=== PATIENT | male | born 1955 | race Caucasian/White ===

== ENCOUNTER 2018-08-22 14:59 | Emergency (ER) | payer OTHER ==
[~2018-08-22] VITALS: Ht 170.2 cm; Wt 100.0 kg
[2018-08-22 15:30] VITALS: Ht 170.2 cm; Wt 100.0 kg
[2018-08-22] MEDS ORDERED: NEURONTIN600 MG PO (15:32)
[2018-08-22] MEDS ORDERED: METFORMIN HCL500 M1 PO (15:33)
[2018-08-22] MEDS ORDERED: TORADOL10 MG PO (18:43)
[2018-08-22 19:29] VITALS: BP 116/66
== END 2018-08-22 19:30 | disposition home or self-care (01) ==
LOC: D.ER 14:59
DX: N50.811 Right testicular pain (principal); S04.891 Injury of other cranial nerves, right side; W23.0XXA Caught, crushed, jammed, or pinched between moving objects, initial encounter; Y93.89 Activity, other specified; Y92.012 Bathroom of single-family (private) house as the place of occurrence of the external cause

== ENCOUNTER 2018-09-11 16:01 | Inpatient (IN) | payer OTHER ==
[~2018-09-11] VITALS: Ht 170.2 cm; Wt 89.8 kg
[~2018-09-11 16:01] MED LIST: METFORMIN HCL500 M1 PO; NEURONTIN600 MG PO; TORADOL10 MG PO
[2018-09-11 16:59] LABS: BASOPHILS 0.2 % (0-2); EOSINOPHILS 0.3 % (0-7); HEMOGLOBIN 14.6 g/dL (13.5-17.5); IMMATURE GRANULOCYTES 0.4 % (0-5); LYMPHOCYTES 19.5 % (15-50); MCH 32.4 pg (26.0-34.0); MCHC 34.8 g/dL (31.0-37.0); MCV 93.1 fL (80.0-100.0); MEAN PLATELET VOLUME 10.1 fL (7.4-10.4); MONOCYTES 4.8 % (2-11); NEUTROPHILS 74.8 % (40-80); PLATELET COUNT 276 10x3/uL (130-400); RBC 4.51 10x6/uL (4.20-6.10); RDW 13.3 % (11.5-14.5); WBC 16.7 10x3/uL (4.8-10.8)
[2018-09-11 17:14] LABS: ALKALINE PHOSPHATASE 67 U/L (46-116); ALT (SGPT) 21 U/L (10-68); BILIRUBIN - TOTAL 1.14 mg/dL (0.2-1.3); CALC OSMOLALITY 272 mosm/kg (275-300); CALCIUM 8.7 mg/dL (8.5-10.1); CHLORIDE - SERUM 101 mmol/L (98-107); CREATININE - SERUM 0.8 mg/dL (0.6-1.3); GLUCOSE 109 mg/dL (74-106); POTASSIUM - SERUM 3.8 mmol/L (3.5-5.1); PROTEIN - SERUM 8.2 g/dL (6.4-8.2); SODIUM 137 mmol/L (136-145); UREA NITROGEN 8 mg/dL (7-18); eGFR NON AFRICAN AMERICAN > 90 mL/min (90-120)
--- NOTE | 2018-09-11 18:57 | NUR ---
VA EXPEDITOR CONTACTED AND NOTIFED THAT THE PATEINT WAS BEING ADMITTED TO OUR FACILITY AND IS NOT MEDICALLY STABLE FOR TRANDFER. VIDA MARTINEZ RN, CCM
--- NOTE | 2018-09-11 19:35 | NUR ---
PT PROVIDED TURKEY SANDWICH FOR MEAL, PT INFORMED ME HE "TOOK HIS METFORMIN."
--- NOTE | 2018-09-11 20:00 | NUR ---
PT ARRIVED TO FLOOR VIA STRETCHER, AMBULATED TO BED WITH LITTLE DIFFICULTY. PAIN IN SCROTUM WITH MOVEMENT. SWELLING TO RIGHT TESTICLE. PT REMINDED OF NPO AFTER MIDNIGHT D/T SX WITH DR BAEZ. PT VERBALIZED UNDERSTANDING. 20G IV RIGHT HAND SL. STATES PAIN 4/10 AT THIS TIME. REQUESTED AND GIVEN COFFEE, JELLO, AND PUDDING. DENIES OTHER NEEDS. CL IN REACH, WILL CTM
[2018-09-11 23:53] VITALS: BMI 31.1
--- NOTE | 2018-09-12 | NUR ---
PT STATES PAIN 8/10 IN SCROTUM. SPOKE WITH DR BAEZ, ORDERS RECIEVED FOR MORPHINE 2MG Q2HP, ZOFRAN 4MG Q6HP, AND NS @ 75. NS INFUSING TO RIGHT HAND, NO REDNESS OR SWELLING AT INSERTION SITE. UPON REASSESSMENT, PT PAIN 0 AFTER MORPHINE. WILL CTM
[2018-09-12 01:18] VITALS: BP 96/56
[2018-09-12 05:22] VITALS: BP 95/60
[2018-09-12 08:43] VITALS: BP 105/66
[2018-09-12 12:04] VITALS: BP 104/70
--- NOTE | 2018-09-12 16:34 | NUR ---
PT RESTING IN BED. NO SIGNS DISTRESS. IV TO RIGHT HAND PATENT NO REDNESS OR TENDERNESS. RIGHT TESTICAL SWOLLEN. GOING TO SURGERY. DENIES ANY NEED AT THIS TIME.
[2018-09-12 18:20] VITALS: BP 130/79
--- NOTE | 2018-09-12 18:20 | NUR ---
I have reviewed this patient and I concur with the Shift Assessment completed by the Licensed Practical Nurse today this shift.
--- NOTE | 2018-09-12 19:45 | NUR ---
IN BED WITH TV ON, ALERT AND ORIENTED TIMES THREE. HE STATES HE FEELS SO MUCH BETTER NOW THAT HE HAS HAD THE PROCEDURE. ABLE TO VOICE ALL NEEDS. IV TO RIGHT ARM INFUSING PER ORDERS. WILL NOTE ANY CHANGE.
[2018-09-12 20:51] VITALS: BP 123/75
[2018-09-13 01:25] VITALS: BP 110/62
--- NOTE | 2018-09-13 02:48 | NUR ---
I have reviewed this patient and I concur with the Shift Assessment completed by the Licensed Practical Nurse today this shift.
[2018-09-13 04:48] VITALS: BP 107/58
[2018-09-13 08:45] VITALS: BP 114/71
--- NOTE | 2018-09-13 09:03 | OP ---
PATIENT NAME: ESTRELLA STEPHEN MEDICAL RECORD: [id number] :59 LOCATION:D[facility] [id number] ADMISSION DATE:09/11/18 SURGEON: RUPAL BAEZ MD DATE OF OPERATION: 09/11/2018 SURGEON: Rupal Baez MD ANESTHESIA: General anesthetic by Day Quinn CRNA. DIAGNOSES: Ruptured right testicle with necrosis, right scrotal abscess. PROCEDURES: Incision and drainage of right scrotal abscess and right orchiectomy. FINDINGS: Right hemiscrotal abscess. Necrotic right testicle with tunica albuginea rupture at the lower pole and seminiferous tubules extruding out of the opening. SPECIMENS: Right testicle and cord blood. ESTIMATED BLOOD LOSS: Minimal. CLINICAL HISTORY: This is a 63-year-old male who has a history of diabetes mellitus type 10 days ago as he was going to the bathroom in the dark he was feeling rather tired and groggy. He said he sat down on the toilet seat and ended up compressing the right testicle between the toilet seat and his thigh. He had immediate pain and he went to the Emergency Room and at that time, an ultrasound of the scrotum showed some blood flow to the right testicle. He went back home. He returned to the Emergency Room yesterday with increasingly severe right scrotal pain. An ultrasound of the scrotum done at that time showed absolutely no blood flow to the testicle. Upon reviewing the history, I discussed the situation with the patient. It seems that he may have ruptured his testicle when he compressed it. The testicle was not necrotic and he may well have a scrotal abscess. He was kept n.p.o. and now comes to the operating room to have this right hemiscrotum explored. He is not allergic to any medications. He was given Ancef 2 grams IV regional environmental manager to the OR. DESCRIPTION OF PROCEDURE: The patient was given induction of general anesthesia in the supine position. He was then prepped and draped. The scrotal skin on the right side shows a lot of thickening and induration. There is no necrosis to suggest Jason's gangrene. A midline incision was made in the scrotum about 3 cm in length. We then went down into the right hemiscrotum. Immediately, we encountered a large copious quantity of pus. Wound culture swabs were obtained. The suction was used to remove the excess pus and we could see the testicles in place. The tunica albuginea had ruptured in the lower pole and there was seminiferous tubules extruding out of the rupture. The testicle was also very inflamed and adherent to the tunica vaginalis. With blunt dissection, I managed to free the entire testicle. I also freed a portion of the cord that was attached to the testicle. Because the cord was highly inflamed and adhered to the scrotal wall, I decided to use a TX-30 stapler and using a vascular load, we cut through the cord with the stapler. A #15 blade was used to transect the cord. The testicular specimen was then sent to pathology. We irrigated the right hemiscrotum with saline with peroxide. Eventually, we used a 2-inch Kerlix infiltrated with normal saline as OPERATIVE REPORT [id number] ESTRELLA STEPHEN packing for the right hemiscrotum. Mesh panties were then used to hold the packing in place. I will arrange for him to have home care to have daily packing changes. TRANSINT:[id number] Voice Confirmation ID: [id number] DOCUMENT ID: [id number] RUPAL BAEZ MD at 0903 CC: [id number] DICTATION DATE: 09/12/181736 CHIEF MARKETING OFFICER: 09/12/185 ADM IN [facility] [address] [id number]
--- NOTE | 2018-09-13 10:22 | NUR ---
WENT INTO DO DAILY DRESSING CHANGE ORDERED TO CLOVER-AREA POST OP TESTICULAR REMOVAL. DURNING DRESSING CHANGE, DUE TO PAIN PATIENT STATES HE WAS READY TO LEAVE, THAT THIS WAS " BULLSHIT". I IMFORMED THE PATIENT THAT IS HE LEFT NOW HIS CHANCES OF HAVING TO RETURN DUE TO NON-HEALING OF WOUND. PATIENT THEN STATES THAT "THE HELL HE WOULD HAVE TO COME BACK, HE WOULD JUST GO HOME AND KILL HIMSELF, AND HE WASNT BULLSHITTING. SOUNDS LIKE A SHOT OF HEROIN WOULD FIX HIM RIGHT UP." AFTER FINISHING THE DRESSING CHANGE, I REMOVED ALL POTENTIAL HARMFUL MATERIAL FROM THE ROOM AND CALL SERVICE DELIVERY SUPERVISOR.
[2018-09-13 10:23] LABS: HEMATOCRIT 38.1 % (42.0-54.0); LYMPHOCYTES 26.6 % (15-50); MCH 31.9 pg (26.0-34.0); MCHC 34.1 g/dL (31.0-37.0); MCV 93.4 fL (80.0-100.0); MEAN PLATELET VOLUME 9.6 fL (7.4-10.4); NEUTROPHILS 66.3 % (40-80); PLATELET COUNT 259 10x3/uL (130-400); RBC 4.08 10x6/uL (4.20-6.10); RDW 12.5 % (11.5-14.5)
[2018-09-13 10:34] LABS: CALC OSMOLALITY 279 mosm/kg (275-300); CALCIUM 8.3 mg/dL (8.5-10.1); CARBON DIOXIDE 28.8 mmol/L (21.0-32.0); CHLORIDE - SERUM 107 mmol/L (98-107); CREATININE - SERUM 0.6 mg/dL (0.6-1.3); GLUCOSE 132 mg/dL (74-106); POTASSIUM - SERUM 3.5 mmol/L (3.5-5.1); SODIUM 141 mmol/L (136-145); eGFR NON AFRICAN AMERICAN > 90 mL/min (90-120)
[2018-09-13 10:39] LABS: UREA NITROGEN 5 mg/dL (7-18)
[2018-09-13 10:40] LABS: WBC 11.1 10x3/uL (4.8-10.8)
--- NOTE | 2018-09-13 11:12 | NUR ---
NURSE PRESENT IN PT'S ROOM UPON ARRIVAL FOR SUICIDE ASSESSMENT. DR. WEBER NOTIFIED AND REVIEWED PT'S BEHAVIOR AND ASSESSMENT RESULTS. PT IS A LOW RISK PER DR. WEBER. DR. WEBER STATED TO GIVE RESOURCES TO PT AT TIME OF DISCHARGE. NO FURTHER ORDERS AT THIS TIME. RESOURCES REVIEWED WITH PT AND HE VERBALIZED UNDERSTANDING. PT REPORTS " I AM A HIPPY. I LIKE TO JOKE AROUND AND HAVE FUN." "I HAVE NEVER ATTEMPTED TO KILL MYSELF AND I NEVER WILL."
--- NOTE | 2018-09-13 11:58 | MORECARE ---
CASE MANAGEMENT DISCHARGE SUMMARY PATIENT: ESTRELLA STEPHEN UNIT: [id number] ADM DATE: 09/11/18 AGE: 63 : 59 SEX: M ROOM/BED: D.2229 AUTHOR: EVELYN BAUER PHYSICIAN: REFERRING PHYSICIAN: RUPAL BAEZ MD DATE OF SERVICE: 09/13/18 Discharge Plan Patient Name: ESTRELLA STEPHEN [facility] [facility] 1955 Planned Disposition: Anticipated Discharge Date: Discharge Date: Expected LOS: Initial Reviewer: [email or web address] Initial Review Date: 09/13/2018 Generated: 09/13/18 12:58 pm DCPIA - Discharge Planning Initial Assessment Updated by [email or web address]: Maliha Dudley on 09/13/18 11:54 am * Is the patient Alert and Oriented? Yes * PCP VA IN [place]. NONE HERE * Preadmission Environment Home with Family * ADLs Independent * Equipment Cane * Community resources currently utilized None * Additional services required to return to the preadmission environment? Yes * Can the patient safely return to the preadmission environment? No * Has this patient been hospitalized within the prior 30 days at any hospital? No Patient Name: ESTRELLA STEPHEN Page [phone] at 1158 All edits/amendments must be made on the electronic document DICTATION DATE: 09/13/18 115 CHURN OPERATOR: CALEB 09/13/18 1158 RPT#: [id number] DC DATE: STATUS: ADM IN [facility] [address] [place] [address] END OF REPORT
--- NOTE | 2018-09-13 12:06 | MORECARE ---
CASE MANAGEMENT DISCHARGE SUMMARY PATIENT: ESTRELLA STEPHEN UNIT: [id number] ADM DATE: 09/11/18 AGE: 63 : 59 SEX: M ROOM/BED: D.2229 AUTHOR: LIZETTEDOC PHYSICIAN: REFERRING PHYSICIAN: RUPAL BAEZ MD DATE OF SERVICE: 09/13/18 Discharge Plan Patient Name: ESTRELLA STEPHEN Facility: [facility]:[place] : 1955 Planned Disposition: Anticipated Discharge Date: Discharge Date: Expected LOS: Initial Reviewer: [email or web address] Initial Review Date: 09/13/2018 Generated: 09/13/18 1:06 pm Comments DCP- Discharge Planning Updated by [id number]: Maliha Dudley on 09/13/18 10:[address] Patient Name: ESTRELLA STEPHEN Admission Status: ER Accout number: [id number] Admission Date: 09-11-2018 : 1955 Admission Diagnosis: Attending: LIZANDRO BAEZ Current LOS: 2 Anticipated DC Date: Planned Disposition: Primary Insurance: [employer] Discharge Planning Comments: CM MET WITH PATIENT ABOUT DC/PLANNING NEEDS. NEEDS WOUND CARE DAILY. PATIENT IS VA AND STATES HERE FROM [place], APPLIED FOR [facility] TODAY. STATES LIVING ARRANGEMENT IS HE HAS JUMPED AROUND TO DIFFERENT FRIENDS, NO PCP BUT IS VA IN [place]. SIGNED ANISA FOR ANY FACILITY. I WILL CONTACT VA TO CHECK ON HIS WOUND CARE DC NEEDS. CM TO FOLLOW AND ASSIST NEEDED. Cartography Supervisor: Maliha Dudley DCPIA - Discharge Planning Initial Assessment Updated by [id number]: Maliha Dudley on 09/13/18 11:54 am * Is the patient Alert and Oriented? Yes * PCP VA IN [place]. NONE HERE * Preadmission Environment Home with Family * ADLs Independent * Equipment Cane * Community resources currently utilized None * Additional services required to return to the preadmission environment? Yes * Can the patient safely return to the preadmission environment? No * Has this patient been hospitalized within the prior 30 days at any hospital? No Coverage Notice Reviewer: [id number] - Maliha Dudley Notice Issued Date-Time: 09/13/2018 11:59 Notice Type: Patient Choice Letter Notice Delivered To: Patient Relationship to Patient: Self Organ Teacher Name: Delivery Method: HAND - Hand Delivered Gracia Days: Prior Verbal Notification: Recipient Understood Notice: Yes Recipient Signature: Yes Med Rec Note Co-signed by Attending: Coverage Notice Comment: WANTS WOUND CARE WITH VA OR ANY THEY RECOMMEND. Last DP export: 09/13/18 10:58 am Patient Name: ESTRELLA STEPHEN Page [phone] at 1206 All edits/amendments must be made on the electronic document DICTATION DATE: 09/13/18 1206 WIREWORKER: CALEB 09/13/18 1206 RPT#: [id number] DC DATE: STATUS: ADM IN [facility] [address] [place] [address] END OF REPORT
[2018-09-13 12:30] VITALS: BP 108/65
--- NOTE | 2018-09-13 13:45 | NUR ---
LYING IN BED,WITHOUT DISTRESS.MONITOR
[2018-09-13 18:20] VITALS: BP 132/72
--- NOTE | 2018-09-13 19:40 | NUR ---
PT LYING IN BED WATCHING TV.CL IN REACH. DENIES NEEDS OR PAIN AT THIS TIME. A/O X4. WCTM RESP EVEN AND UNLABORED.
[2018-09-13 22:18] VITALS: BP 131/73
--- NOTE | 2018-09-14 00:07 | NUR ---
PT RESTING QUIETLY. CL IN REACH. NO DISTRESS NOTED. CPOC
--- NOTE | 2018-09-14 03:59 | NUR ---
I have reviewed this patient and I concur with the Shift Assessment completed by the Licensed Practical Nurse today this shift.
[2018-09-14 05:46] VITALS: BP 115/72
[2018-09-14 10:52] VITALS: BP 124/57
[2018-09-14 13:33] VITALS: BP 137/88
--- NOTE | 2018-09-14 15:46 | NUR ---
PATIENT RECIEVED MORPHINE FOR PRE DRESSING CHANGE.
--- NOTE | 2018-09-14 16:00 | NUR ---
PATIENT DRESSING TO SCROTUM CHANGED ORDERED. OLD PACKING REMOVED BY DR. BAEZ. STERILE NS SOAKED GAUZE PACKED INTO SCROTUM AND 4X4 AND ABD'S PLACED OVER WOUND. WOUND LOOKS CLEAN AND PINK. NO PURELENT DRAINAGE NOTED. IV INTACT. CALL LIGHT WITHIN REACH.
--- NOTE | 2018-09-14 16:13 | MORECARE ---
CASE MANAGEMENT DISCHARGE SUMMARY PATIENT: ESTRELLA STEPHEN UNIT: [id number] ADM DATE: 09/11/18 AGE: 63 : 59 SEX: M ROOM/BED: D.2229 AUTHOR: LIZETTEDOC PHYSICIAN: REFERRING PHYSICIAN: RUPAL BAEZ MD DATE OF SERVICE: 09/14/18 Discharge Plan Patient Name: ESTRELLA STEPHEN Facility: [facility]:[place] : 1955 Planned Disposition: Anticipated Discharge Date: Discharge Date: Expected LOS: Initial Reviewer: [email or web address] Initial Review Date: 09/13/2018 Generated: 09/14/18 5:12 pm Comments DCP- Discharge Planning Updated by [id number]: Maliha Dudley on 09/14/18 3:[address] Patient Name: ESTRELLA STEPHEN Admission Status: ER Accout number: [id number] Admission Date: 09-11-2018 : 1955 Admission Diagnosis: Attending: LIZANDRO BAEZ Current LOS: 3 Anticipated DC Date: Planned Disposition: Primary Insurance: [employer] Discharge Planning Comments: CM SPOKE WITH BRITNI AT THE [place] AFTER TALKING TO DR. BAEZ ABOUT DC PLANNING. [place] NOTIFIED THAT PATIENT WILL NEED HOME HEALTH OR SOME WAY TO GET WOUND PACKING DAILY. KAYLA RUBIO [place] POWERTRAIN DESIGN ENGINEER TO CONTACT CM TOMORROW ABOUT GETTING PATIENT DISCHARGED/PLACED. JOANNE PHONE NUMBER IS [phone]. CM TO FOLLOW. Requisition Approver: Maliha Dudley DCP- Discharge Planning Updated by [id number]: Maliha Dudley on 09/13/18 10:[address] Patient Name: ESTRELLA STEPHEN Admission Status: ER Accout number: [id number] Admission Date: 09-11-2018 : 1955 Admission Diagnosis: Attending: LIZANDRO BAEZ Current LOS: 2 Anticipated DC Date: Planned Disposition: Primary Insurance: [facility] ADMINISTRATION Discharge Planning Comments: CM MET WITH PATIENT ABOUT DC/PLANNING NEEDS. NEEDS WOUND CARE DAILY. PATIENT IS VA AND STATES HERE FROM [place], APPLIED FOR [facility] TODAY. STATES LIVING ARRANGEMENT IS HE HAS JUMPED AROUND TO DIFFERENT FRIENDS, NO PCP BUT IS VA IN [place]. SIGNED ANISA FOR ANY FACILITY. I WILL CONTACT AR TO CHECK ON HIS WOUND CARE DC NEEDS. CM TO FOLLOW AND ASSIST NEEDED. Requisition Approver: Maliha Octavia DCPIA - Discharge Planning Initial Assessment Updated by [email or web address]: Maliha Dudley on 09/13/18 11:54 am * Is the patient Alert and Oriented? Yes * PCP VA IN [place]. NONE HERE * Preadmission Environment Home with Family * ADLs Independent * Equipment Cane * Community resources currently utilized None * Additional services required to return to the preadmission environment? Yes * Can the patient safely return to the preadmission environment? No * Has this patient been hospitalized within the prior 30 days at any hospital? No Coverage Notice Reviewer: [id number] - Maliha Dudley Notice Issued Date-Time: 09/13/2018 11:59 Notice Type: Patient Choice Letter Notice Delivered To: Patient Relationship to Patient: Self Tax Senior Associate Name: Delivery Method: HAND - Hand Delivered Gracia Days: Prior Verbal Notification: Recipient Understood Notice: Yes Recipient Signature: Yes Med Rec Note Co-signed by Attending: Coverage Notice Comment: WANTS WOUND CARE WITH VA OR ANY THEY RECOMMEND. Last DP export: 09/13/18 11:06 am Patient Name: ESTRELLA STEPHEN Page [phone] at 1613 All edits/amendments must be made on the electronic document DICTATION DATE: 09/14/18 1612 ROOF PLUMBER: CALEB 09/14/18 161 RPT#: [id number] DC DATE: STATUS: ADM IN [facility] [address] [place] [address] END OF REPORT
--- NOTE | 2018-09-14 16:27 | NUR ---
PATIENT RECIEVED NORCO FOR PAIN. STILL HURTING FROM DRESSING CHANGE. IV INTACT. CALL LIGHT WITHIN REACH.
--- NOTE | 2018-09-14 19:15 | NUR ---
PT ALERT AND ORIENTED. SUPINE POSITION WITH PILLOW IN BETWEEN LEGS FOR COMFORT. ASSESSED RIGHT GROIN/PERINEAL AREA. DRESSING CLEAN AND DRY. RIGHT HAND SALINE LOCKED. USES URINAL. HAS CALL LIGHT IN HAND. BED IS LOCKED AND LOWERED. DENIES FURTHER NEEDS AT THIS TIME. CPOC.
[2018-09-14 20:00] VITALS: BP 128/85
--- NOTE | 2018-09-14 20:50 | NUR ---
PT REQUESTED PAIN MEDICINE. ADMINISTERED PER ORDER. TOLERATED WELL. CALL LIGHT REMAINS IN REACH OF PATIENT. CPOC./
[2018-09-15] VITALS: BP 130/76
--- NOTE | 2018-09-15 03:00 | NUR ---
I have reviewed this patient and I concur with the Shift Assessment completed by the Licensed Practical Nurse today this shift.
[2018-09-15 04:00] VITALS: BP 132/76
[2018-09-15 08:55] VITALS: BP 127/81
[2018-09-15 12:00] VITALS: BP 103/64
--- NOTE | 2018-09-15 12:27 | MORECARE ---
CASE MANAGEMENT DISCHARGE SUMMARY PATIENT: ESTRELLA STEPHEN UNIT: [id number] ADM DATE: 09/11/18 AGE: 63 : 59 SEX: M ROOM/BED: D.2229 AUTHOR: LIZETTEDOC PHYSICIAN: REFERRING PHYSICIAN: RUPAL BAEZ MD DATE OF SERVICE: 09/15/18 Discharge Plan Patient Name: ESTRELLA STEPHEN Facility: [facility]:[place] : 1955 Planned Disposition: Anticipated Discharge Date: Discharge Date: Expected LOS: Initial Reviewer: [id number] Initial Review Date: 09/13/2018 Generated: 09/15/18 1:27 pm Comments DCP- Discharge Planning Updated by [id number]: Maliha Dudley on 09/14/18 3:[address] Patient Name: ESTRELLA STEPHEN Admission Status: ER Accout number: [id number] Admission Date: 09-11-2018 : 1955 Admission Diagnosis: Attending: LIZANDRO BAEZ Current LOS: 3 Anticipated DC Date: Planned Disposition: Primary Insurance: [employer] Discharge Planning Comments: CM SPOKE WITH BRITNI AT THE [place] AFTER TALKING TO DR. BAEZ ABOUT DC PLANNING. [place] NOTIFIED THAT PATIENT WILL NEED HOME HEALTH OR SOME WAY TO GET WOUND PACKING DAILY. KAYLA RUBIO [place] FORECLOSURE FIELD INSPECTOR TO CONTACT CM TOMORROW ABOUT GETTING PATIENT DISCHARGED/PLACED. JOANNE PHONE NUMBER IS [phone]. CM TO FOLLOW. Power Plant Installer: Maliha Dudley DCP- Discharge Planning Updated by [id number]: Maliha Dudley on 09/13/18 10:[address] Patient Name: ESTRELLA STEPHEN Admission Status: ER Accout number: [id number] Admission Date: 09-11-2018 : 1955 Admission Diagnosis: Attending: LIZANDRO BAZE Current LOS: 2 Anticipated DC Date: Planned Disposition: Primary Insurance: [facility] ADMINISTRATION Discharge Planning Comments: CM MET WITH PATIENT ABOUT DC/PLANNING NEEDS. NEEDS WOUND CARE DAILY. PATIENT IS VA AND STATES HERE FROM [place], APPLIED FOR [facility] TODAY. STATES LIVING ARRANGEMENT IS HE HAS JUMPED AROUND TO DIFFERENT FRIENDS, NO PCP BUT IS VA IN [place]. SIGNED ANISA FOR ANY FACILITY. I WILL CONTACT [place] TO CHECK ON HIS WOUND CARE DC NEEDS. CM TO FOLLOW AND ASSIST NEEDED. Power Plant Installer: Maliha Octavia DCPIA - Discharge Planning Initial Assessment Updated by [id number]: Malihajeana Dudley on 09/13/18 11:54 am * Is the patient Alert and Oriented? Yes * PCP VA IN [place]. NONE HERE * Preadmission Environment Home with Family * ADLs Independent * Equipment Cane * Community resources currently utilized None * Additional services required to return to the preadmission environment? Yes * Can the patient safely return to the preadmission environment? No * Has this patient been hospitalized within the prior 30 days at any hospital? No External Providers External Provider: OTHER-OTHER Next Contact Date: Service Request Date: Service Type: Resolution: Reviewer: Comments: Coverage Notice Reviewer: [email or web address] - Malihajeana Dudley Notice Issued Date-Time: 09/13/2018 11:59 Notice Type: Patient Choice Letter Notice Delivered To: Patient Relationship to Patient: Self Road Conductor Name: Delivery Method: HAND - Hand Delivered Gracia Days: Prior Verbal Notification: Recipient Understood Notice: Yes Recipient Signature: Yes Med Rec Note Co-signed by Attending: Coverage Notice Comment: WANTS WOUND CARE WITH VA OR ANY THEY RECOMMEND. Last DP export: 09/14/18 3:13 pm Patient Name: ESTRELLA STEPHEN Page [phone] at 1227 All edits/amendments must be made on the electronic document DICTATION DATE: 09/15/187 PATIENT SERVICE COORDINATOR: CALEB 09/15/18 1227 RPT#: [id number] DC DATE: STATUS: ADM IN [facility] [address] [place] [address] END OF REPORT
[2018-09-15 13:48] VITALS: Ht 170.2 cm; Wt 89.8 kg
--- NOTE | 2018-09-15 16:45 | NUR ---
PATIENT DRESSING CHANGED AT THIS TIME. INCISION CLEAN AND PINL. NO PURELENT DRAINAGE. REPACKED WITH KERLIX AND NS. COVERED WITH GAUZE AND ABD PAD. PATIENT TOLERATED WITH MODERATE AMOUNT OF PAIN. IV INTACT. CALL LIGHT WITHIN REACH.
[2018-09-15 16:47] VITALS: BP 98/65
--- NOTE | 2018-09-15 17:32 | MORECARE ---
CASE MANAGEMENT DISCHARGE SUMMARY PATIENT: ESTRELLA STEPHEN UNIT: [id number] ADM DATE: 09/11/18 AGE: 63 : 59 SEX: M ROOM/BED: D.2229 AUTHOR: LIZETTEDOC PHYSICIAN: REFERRING PHYSICIAN: RUPAL BAEZ MD DATE OF SERVICE: 09/15/18 Discharge Plan Patient Name: ESTRELLA STEPHEN Facility: [facility]:[place] : 1955 Planned Disposition: Anticipated Discharge Date: Discharge Date: Expected LOS: Initial Reviewer: [id number] Initial Review Date: 09/13/2018 Generated: 09/15/18 6:32 pm Comments DCP- Discharge Planning Updated by [email or web address]: Maliha Dudley on 09/14/18 3:[address] Patient Name: ESTRELLA STEPHEN Admission Status: ER Accout number: [id number] Admission Date: 09-11-2018 : 1955 Admission Diagnosis: Attending: LIZANDRO BAEZ Current LOS: 3 Anticipated DC Date: Planned Disposition: Primary Insurance: [employer] Discharge Planning Comments: CM SPOKE WITH BRITNI AT THE [place] AFTER TALKING TO DR. BAEZ ABOUT DC PLANNING. [place] NOTIFIED THAT PATIENT WILL NEED HOME HEALTH OR SOME WAY TO GET WOUND PACKING DAILY. KAYLA RUBIO [place] PAYROLL CONSULTANT TO CONTACT CM TOMORROW ABOUT GETTING PATIENT DISCHARGED/PLACED. JOANNE PHONE NUMBER IS [phone]. CM TO FOLLOW. Skein Yard Drier: Maliha Dudley DCP- Discharge Planning Updated by [id number]: Maliha Dudley on 09/13/18 10:[address] Patient Name: ESTRELLA STEPHEN Admission Status: ER Accout number: [id number] Admission Date: 09-11-2018 : 1955 Admission Diagnosis: Attending: LIZANDRO BAEZ Current LOS: 2 Anticipated DC Date: Planned Disposition: Primary Insurance: [facility] Discharge Planning Comments: CM MET WITH PATIENT ABOUT DC/PLANNING NEEDS. NEEDS WOUND CARE DAILY. PATIENT IS VA AND STATES HERE FROM [place], APPLIED FOR [facility] TODAY. STATES LIVING ARRANGEMENT IS HE HAS JUMPED AROUND TO DIFFERENT FRIENDS, NO PCP BUT IS VA IN [place]. SIGNED ANISA FOR ANY FACILITY. I WILL CONTACT DE TO CHECK ON HIS WOUND CARE DC NEEDS. CM TO FOLLOW AND ASSIST NEEDED. Skein Yard Drier: Maliha Octavia DCPIA - Discharge Planning Initial Assessment Updated by [email or web address]: Maliha Dudley on 09/13/18 11:54 am * Is the patient Alert and Oriented? Yes * PCP VA IN [place]. NONE HERE * Preadmission Environment Home with Family * ADLs Independent * Equipment Cane * Community resources currently utilized None * Additional services required to return to the preadmission environment? Yes * Can the patient safely return to the preadmission environment? No * Has this patient been hospitalized within the prior 30 days at any hospital? No Coverage Notice Reviewer: [id number] - Maliha Dudley Notice Issued Date-Time: 09/13/2018 11:59 Notice Type: Patient Choice Letter Notice Delivered To: Patient Relationship to Patient: Self Carbonizer Tester Name: Delivery Method: HAND - Hand Delivered Gracia Days: Prior Verbal Notification: Recipient Understood Notice: Yes Recipient Signature: Yes Med Rec Note Co-signed by Attending: Coverage Notice Comment: WANTS WOUND CARE WITH VA OR ANY THEY RECOMMEND. Last DP export: 09/15/18 11:27 am Patient Name: ESTRELLA STEPHEN Page [phone] at 1732 All edits/amendments must be made on the electronic document DICTATION DATE: 09/15/181731 QUALITY INSPECTOR: CALEB 09/15/181731 RPT#: [id number] DC DATE: STATUS: ADM IN [facility] [address] [place] [address] END OF REPORT
--- NOTE | 2018-09-15 17:41 | MORECARE ---
CASE MANAGEMENT DISCHARGE SUMMARY PATIENT: ESTRELLA STEPHEN UNIT: [id number] ADM DATE: 09/11/18 AGE: 63 : 59 SEX: M ROOM/BED: D.2229 AUTHOR: LIZETTEDOC PHYSICIAN: REFERRING PHYSICIAN: RUPAL BAEZ MD DATE OF SERVICE: 09/15/18 Discharge Plan Patient Name: ESTRELLA STEPHEN Facility: [facility]:[place] : 1955 Planned Disposition: Anticipated Discharge Date: Discharge Date: Expected LOS: Initial Reviewer: [id number] Initial Review Date: 09/13/2018 Generated: 09/15/18 6:41 pm Comments DCP- Discharge Planning Updated by [id number]: Maliha Dudley on 09/15/18 4:[address] Patient Name: ESTRELLA STEPHEN Admission Status: ER Accout number: [id number] Admission Date: 09-11-2018 : 1955 Admission Diagnosis: Attending: LIZANDRO BAEZ Current LOS: 4 Anticipated DC Date: Planned Disposition: Primary Insurance: [employer] Discharge Planning Comments: VEGETABLES COOK MS RUBIO PHONE [phone] IS WORKING ON PLACEMENT. SHE STATES IT WILL BE TUESDAY BEFORE SHE COULD GET PLACEMENT ON HIM AND STATES DR SEWELL WILL OVER SEE PATIENT WHEN DISCHARGED. CM TO FOLLOW AND ASSIST NEEDED. EXPECTING A CALL FROM JOANNE TUESDAY. Cloth Washer: Maliha Dudley DCP- Discharge Planning Updated by [id number]: Maliha Dudley on 09/14/18 3:[address] Patient Name: ESTRELLA STEPHEN Admission Status: ER Accout number: [id number] Admission Date: 09-11-2018 : 1955 Admission Diagnosis: Attending: LIZANDRO BAEZ Current LOS: 3 Anticipated DC Date: Planned Disposition: Primary Insurance: [employer] Discharge Planning Comments: CM SPOKE WITH BRITNI AT THE [place] AFTER TALKING TO DR. BAEZ ABOUT DC PLANNING. [place] NOTIFIED THAT PATIENT WILL NEED HOME HEALTH OR SOME WAY TO GET WOUND PACKING DAILY. KAYLA RUBIO LA VEGETABLES COOK TO CONTACT CM TOMORROW ABOUT GETTING PATIENT DISCHARGED/PLACED. JOANNE PHONE NUMBER IS [phone]. CM TO FOLLOW. Cloth Washer: Maliha Dudley DCP- Discharge Planning Updated by [id number]: Maliha Dudley on 09/13/18 10:[address] Patient Name: ESTRELLA STEPHEN Admission Status: ER Accout number: [id number] Admission Date: 09-11-2018 : 1955 Admission Diagnosis: Attending: LIZANDRO BAEZ Current LOS: 2 Anticipated DC Date: Planned Disposition: Primary Insurance: [employer] Discharge Planning Comments: CM MET WITH PATIENT ABOUT DC/PLANNING NEEDS. NEEDS WOUND CARE DAILY. PATIENT IS [facility] AND STATES HERE FROM [place], APPLIED FOR [facility] TODAY. STATES LIVING ARRANGEMENT IS HE HAS JUMPED AROUND TO DIFFERENT FRIENDS, NO PCP BUT IS VA IN [place]. SIGNED ANISA FOR ANY FACILITY. I WILL CONTACT VA TO CHECK ON HIS WOUND CARE DC NEEDS. CM TO FOLLOW AND ASSIST NEEDED. Cloth Washer: Maliha Dudley DCPIA - Discharge Planning Initial Assessment Updated by [id number]: Maliha Dudley on 09/13/18 11:54 am * Is the patient Alert and Oriented? Yes * PCP VA IN [place]. NONE HERE * Preadmission Environment Home with Family * ADLs Independent * Equipment Cane * Community resources currently utilized None * Additional services required to return to the preadmission environment? Yes * Can the patient safely return to the preadmission environment? No * Has this patient been hospitalized within the prior 30 days at any hospital? No Coverage Notice Reviewer: [id number] - Maliha Dudley Notice Issued Date-Time: 09/13/2018 11:59 Notice Type: Patient Choice Letter Notice Delivered To: Patient Relationship to Patient: Self Help Desk Engineer Name: Delivery Method: HAND - Hand Delivered Gracia Days: Prior Verbal Notification: Recipient Understood Notice: Yes Recipient Signature: Yes Med Rec Note Co-signed by Attending: Coverage Notice Comment: WANTS WOUND CARE WITH VA OR ANY THEY RECOMMEND. Last DP export: 09/15/18 4:32 pm Patient Name: ESTRELLA STEPHEN Page 56495 at 1741 All edits/amendments must be made on the electronic document DICTATION DATE: 09/15/181739 HISTORIOGRAPHY PROFESSOR: CALEB 09/15/181739 RPT#: [id number] DC DATE: STATUS: ADM IN [facility] [address] [place] [address] END OF REPORT
[2018-09-15 20:00] VITALS: BP 102/64
[2018-09-16 04:00] VITALS: BP 102/63
[2018-09-16 08:37] VITALS: BP 102/61
--- NOTE | 2018-09-16 09:00 | NUR ---
ALERT AND ORIENTED WITH DRESSING INTACT TO SCROTAL AREA. IV INTACT TO RT. HAND. FISHER MANAGDE WITH NORCO AT THIS TIME AND EFFECTIVE. CHANGES POSITION PRN. ENCOURAGED TO USE CALL LIGHT FOR ASSSIT.
[2018-09-16 13:37] VITALS: BP 99/73
[2018-09-16 16:57] VITALS: BP 97/71
[2018-09-16 20:00] VITALS: BP 125/89
[2018-09-17] VITALS: BP 111/70
[2018-09-17 04:00] VITALS: BP 120/69
[2018-09-17 08:32] VITALS: BP 107/68
--- NOTE | 2018-09-17 09:00 | NUR ---
ALERT AND ORIENTEDX4 AND UP AMBULATING WITH STEADY GAIT. DRESSING INTACT TO SCROTUM WITH NO PAIN NOTED AT THIS TIME. IVF INFUSING TO RT HAND AT PRESCRIBED RATE WITH NO S/S OF INFECTION/INFILTRATION.
[2018-09-17 13:28] VITALS: BP 91/73
[2018-09-17 16:56] VITALS: BP 117/72
[2018-09-17 20:00] VITALS: BP 128/85
[2018-09-18 04:00] VITALS: BP 118/74
--- NOTE | 2018-09-18 07:30 | NUR ---
ALERT AND ORIENTED, RESTING IN BED. POD #6 RIGHT TESTICLE REMOVAL, DRESSING C/D/I. IV TO LEFT HAND, NS INFUSING @ 75ML/HR. SITE PATENT WITHOUT REDNESS OR SWELLING. NO C/O PAIN. NO S/S OF ACUTE DISTRESS NOTED. CALL LIGHT IN REACH. WILL CONTINUE TO MONITOR.
[2018-09-18 08:41] VITALS: BP 127/79
[2018-09-18 14:01] VITALS: BP 144/87
--- NOTE | 2018-09-18 15:27 | NUR ---
I have reviewed this patient and I concur with the Shift Assessment completed by the Licensed Practical Nurse today this shift.
--- NOTE | 2018-09-18 15:55 | MORECARE ---
CASE MANAGEMENT DISCHARGE SUMMARY PATIENT: ESTRELLA STEPHEN UNIT: [id number] ADM DATE: 09/11/18 AGE: 63 : 59 SEX: M ROOM/BED: D.2229 AUTHOR: EVELYN BAUER PHYSICIAN: REFERRING PHYSICIAN: RUPAL BAEZ MD DATE OF SERVICE: 09/18/18 Discharge Plan Patient Name: ESTRELLA STEPHEN Facility: [facility]:[place] : 1955 Planned Disposition: Anticipated Discharge Date: Discharge Date: Expected LOS: Initial Reviewer: [id number] Initial Review Date: 09/13/2018 Generated: 09/18/18 4:55 pm Comments DCP- Discharge Planning Updated by [id number]: Maliha Dudley on 09/18/18 2:[address] Patient Name: ESTRELLA STEPHEN Admission Status: ER Accout number: [id number] Admission Date: 09-11-2018 : 1955 Admission Diagnosis: Attending: LIZANDRO BAEZ Current LOS: 7 Anticipated DC Date: Planned Disposition: Primary Insurance: [employer] Discharge Planning Comments: KERRI CHRISTIE FROM [facility] CALLED FROM [phone] ABOUT PATIENT NEEDS. I INFORMED HER THAT MS RUBIO SAID SHE WOULD WORK ON PLACEMENT TODAY. PATIENT NEEDS A SNF. MS CHRISTIE IS CHECKING AND WILL CALL ME BACK. [place] Leverman: Maliha Dudley DCP- Discharge Planning Updated by [id number]: Maliha Dudley on 09/15/18 4:[address] Patient Name: ESTRELLA STEPHEN Admission Status: ER Accout number: [id number] Admission Date: 09-11-2018 : 1955 Admission Diagnosis: Attending: LIZANDRO BAEZ Current LOS: 4 Anticipated DC Date: Planned Disposition: Primary Insurance: [employer] Discharge Planning Comments: LAN SPECIALIST MS RUBIO PHONE [phone] IS WORKING ON PLACEMENT. SHE STATES IT WILL BE TUESDAY BEFORE SHE COULD GET PLACEMENT ON HIM AND STATES DR SEWELL WILL OVER SEE PATIENT WHEN DISCHARGED. CM TO FOLLOW AND ASSIST NEEDED. EXPECTING A CALL FROM JOANNE TUESDAY. [place] Leverman: Maliha Dudley DCP- Discharge Planning Updated by [id number]: Maliha Dudley on 09/14/18 3:[address] Patient Name: ESTRELLA STEPHEN Admission Status: ER Accout number: [id number] Admission Date: 09-11-2018 : 1955 Admission Diagnosis: Attending: LIZANDRO BAEZ Current LOS: 3 Anticipated DC Date: Planned Disposition: Primary Insurance: [facility] [employer] Discharge Planning Comments: CM SPOKE WITH BRITNI AT THE ID AFTER TALKING TO DR. BAEZ ABOUT DC PLANNING. ID NOTIFIED THAT PATIENT WILL NEED HOME HEALTH OR SOME WAY TO GET WOUND PACKING DAILY. KAYLA RUBIO ID LAN SPECIALIST TO CONTACT CM TOMORROW ABOUT GETTING PATIENT DISCHARGED/PLACED. JOANNE PHONE NUMBER IS [phone]. CM TO FOLLOW. [place] Leverman: Maliha Dudley DCP- Discharge Planning Updated by [id number]: Maliha Dudley on 09/13/18 10:[address] Patient Name: ESTRELLA STEPHEN Admission Status: ER Accout number: [id number] Admission Date: 09-11-2018 : 1955 Admission Diagnosis: Attending: LIZANDRO BAEZ Current LOS: 2 Anticipated DC Date: Planned Disposition: Primary Insurance: [facility] [employer] Discharge Planning Comments: CM MET WITH PATIENT ABOUT DC/PLANNING NEEDS. NEEDS WOUND CARE DAILY. PATIENT IS VA AND STATES HERE FROM [place], APPLIED FOR [facility] TODAY. STATES LIVING ARRANGEMENT IS HE HAS JUMPED AROUND TO DIFFERENT FRIENDS, NO PCP BUT IS [facility] IN [place]. SIGNED ANISA FOR ANY FACILITY. I WILL CONTACT ID TO CHECK ON HIS WOUND CARE DC NEEDS. CM TO FOLLOW AND ASSIST NEEDED. [place] Leverman: Maliha Dudley DCPIA - Discharge Planning Initial Assessment Updated by [id number]: Maliha Dudley on 09/13/18 11:54 am * Is the patient Alert and Oriented? Yes * PCP VA IN [place]. NONE HERE * Preadmission Environment Home with Family * ADLs Independent * Equipment Cane * Community resources currently utilized None * Additional services required to return to the preadmission environment? Yes * Can the patient safely return to the preadmission environment? No * Has this patient been hospitalized within the prior 30 days at any hospital? No Coverage Notice Reviewer: [id number] - Maliha Dudley Notice Issued Date-Time: 09/13/2018 11:59 Notice Type: Patient Choice Letter Notice Delivered To: Patient Relationship to Patient: Self Furnace Unloader Name: Delivery Method: HAND - Hand Delivered Gracia Days: Prior Verbal Notification: Recipient Understood Notice: Yes Recipient Signature: Yes Med Rec Note Co-signed by Attending: Coverage Notice Comment: WANTS WOUND CARE WITH VA OR ANY THEY RECOMMEND. Last DP export: 09/15/18 4:41 pm Patient Name: ESTRELLA STEPHEN Page 65082 at 1555 All edits/amendments must be made on the electronic document DICTATION DATE: 09/18/181554 OUTPATIENT PHARMACY MANAGER: CALEB 09/18/184 RPT#: [id number] DC DATE: STATUS: ADM IN [facility] [address] [place] [address] END OF REPORT
[2018-09-18 17:15] VITALS: BP 96/52
[2018-09-18 20:00] VITALS: BP 107/68
--- NOTE | 2018-09-18 20:00 | NUR ---
ALERT RESTING IN BED DENIES PAIN, DRESSING TO RIGHT TESTICLE INTACT, SEE SHIFT ASSESSMENT, CALL LIGHT IN REACH
[2018-09-19 04:00] VITALS: BP 118/72
[2018-09-19 08:59] VITALS: BP 119/72
--- NOTE | 2018-09-19 12:23 | MORECARE ---
CASE MANAGEMENT DISCHARGE SUMMARY PATIENT: ESTRELLA STEPHEN UNIT: [id number] ADM DATE: 09/11/18 AGE: 63 : 59 SEX: M ROOM/BED: D.2229 AUTHOR: EVELYN BAUER PHYSICIAN: REFERRING PHYSICIAN: RUPAL BAEZ MD DATE OF SERVICE: 09/19/18 Discharge Plan Patient Name: ESTRELLA STEPHEN Facility: [facility]:[place] : 1955 Planned Disposition: Anticipated Discharge Date: Discharge Date: Expected LOS: Initial Reviewer: [id number] Initial Review Date: 09/13/2018 Generated: 09/19/18 1:22 pm Comments DCP- Discharge Planning Updated by [id number]: Maliha Dudley on 09/19/18 11:[address] Patient Name: ESTRELLA STEPHEN Admission Status: ER Accout number: [id number] Admission Date: 09-11-2018 : 1955 Admission Diagnosis: Attending: LIZANDRO BAEZ Current LOS: 8 Anticipated DC Date: Planned Disposition: Primary Insurance: [employer] Discharge Planning Comments: CM SPOKE WITH THE ID MS RUBIO. THEY WOULD LIKE TO KNOW DURATION OF ANTIOBIOTICS AND WOUND CARE AND THE PLAN IS FOR THEM TO ACCEPT AND TRANSFER TO THE VA. MS. RUBIO IS WORKING ON IT, CM WILL CALL HER WITH DETAILS OF TREATMENT. CM TO FOLLOW. Public Health Service Officer: Maliha Dudley DCP- Discharge Planning Updated by [id number]: Maliha Dudley on 09/18/18 2:[address] Patient Name: ESTRELLA STEPHEN Admission Status: ER Accout number: [id number] Admission Date: 09-11-2018 : 1955 Admission Diagnosis: Attending: LIZANDRO BAEZ Current LOS: 7 Anticipated DC Date: Planned Disposition: Primary Insurance: [employer] Discharge Planning Comments: KERRI CHRISTIE FROM [facility] CALLED FROM [phone] ABOUT PATIENT NEEDS. I INFORMED HER THAT MS RUBIO SAID SHE WOULD WORK ON PLACEMENT TODAY. PATIENT NEEDS A SNF. MS CHRISTIE IS CHECKING AND WILL CALL ME BACK. Public Health Service Officer: Maliha Dudley DCP- Discharge Planning Updated by [id number]: Maliha Dudley on 09/15/18 4:[address] Patient Name: ESTRELLA STEPHEN Admission Status: ER Accout number: [id number] Admission Date: 09-11-2018 : 1955 Admission Diagnosis: Attending: LIZANDRO BAEZ Current LOS: 4 Anticipated DC Date: Planned Disposition: Primary Insurance: [employer] Discharge Planning Comments: WIRE WHEELER MS RUBIO PHONE [phone] IS WORKING ON PLACEMENT. SHE STATES IT WILL BE TUESDAY BEFORE SHE COULD GET PLACEMENT ON HIM AND STATES DR SEWELL WILL OVER SEE PATIENT WHEN DISCHARGED. CM TO FOLLOW AND ASSIST NEEDED. EXPECTING A CALL FROM JOANNE TUESDAY. Public Health Service Officer: Maliha Dudley DCP- Discharge Planning Updated by [id number]: Maliha Dudley on 09/14/18 3:[address] Patient Name: ESTRELLA STEPHEN Admission Status: ER Accout number: [id number] Admission Date: 09-11-2018 : 1955 Admission Diagnosis: Attending: LIZANDRO BAEZ Current LOS: 3 Anticipated DC Date: Planned Disposition: Primary Insurance: [employer] Discharge Planning Comments: CM SPOKE WITH BRITNI AT THE ID AFTER TALKING TO DR. BAEZ ABOUT DC PLANNING. ID NOTIFIED THAT PATIENT WILL NEED HOME HEALTH OR SOME WAY TO GET WOUND PACKING DAILY. KAYLA RUBIO ID WIRE WHEELER TO CONTACT CM TOMORROW ABOUT GETTING PATIENT DISCHARGED/PLACED. JOANNE PHONE NUMBER IS [phone]. CM TO FOLLOW. Public Health Service Officer: Maliha Dudley DCP- Discharge Planning Updated by [id number]: Maliha Dudley on 09/13/18 10:[address] Patient Name: ESTRELLA STEPHEN Admission Status: ER Accout number: [id number] Admission Date: 09-11-2018 : 1955 Admission Diagnosis: Attending: LIZANDRO BAEZ Current LOS: 2 Anticipated DC Date: Planned Disposition: Primary Insurance: [employer] Discharge Planning Comments: CM MET WITH PATIENT ABOUT DC/PLANNING NEEDS. NEEDS WOUND CARE DAILY. PATIENT IS VA AND STATES HERE FROM [place], APPLIED FOR [facility] TODAY. STATES LIVING ARRANGEMENT IS HE HAS JUMPED AROUND TO DIFFERENT FRIENDS, NO PCP BUT IS VA IN [place]. SIGNED ANISA FOR ANY FACILITY. I WILL CONTACT ID TO CHECK ON HIS WOUND CARE DC NEEDS. CM TO FOLLOW AND ASSIST NEEDED. Public Health Service Officer: Maliha Dudley DCPIA - Discharge Planning Initial Assessment Updated by [id number]: Maliha Dudley on 09/13/18 11:54 am * Is the patient Alert and Oriented? Yes * PCP VA IN [place]. NONE HERE * Preadmission Environment Home with Family * ADLs Independent * Equipment Cane * Community resources currently utilized None * Additional services required to return to the preadmission environment? Yes * Can the patient safely return to the preadmission environment? No * Has this patient been hospitalized within the prior 30 days at any hospital? No Coverage Notice Reviewer: [id number] Diego Dudley Notice Issued Date-Time: 09/13/2018 11:59 Notice Type: Patient Choice Letter Notice Delivered To: Patient Relationship to Patient: Self Contact Person Name: Delivery Method: HAND - Hand Delivered Gracia Days: Prior Verbal Notification: Recipient Understood Notice: Yes Recipient Signature: Yes Med Rec Note Co-signed by Attending: Coverage Notice Comment: WANTS WOUND CARE WITH VA OR ANY THEY RECOMMEND. Last DP export: 09/18/18 2:55 p Patient Name: ESTRELLA STEPHEN Page [phone] at 1223 All edits/amendments must be made on the electronic document DICTATION DATE: 09/19/18 1222 COOKIE BREAKER: CALEB 09/19/18 1222 RPT#: [id number] DC DATE: STATUS: ADM IN [facility] [address] [place] [address] END OF REPORT
[2018-09-19 13:11] VITALS: BP 117/76
--- NOTE | 2018-09-19 15:12 | NUR ---
PT RESTING IN BED. NO SIGNS OF DISTRESS. IV TO LEFT HAND PATENT NO REDNESS OR TENDERNESS. HAS INCISION TO RIGHT TESTICAL. DRESSING IS TO BE CHANGED. DENIES ANY FUTHER NEED AT THIS TIME. CALL LIGHT IN REACH. BED LOW POSITION. NO FAMILY AT BEDSIDE AT THIS TIME.
[2018-09-19 16:44] VITALS: BP 129/81
--- NOTE | 2018-09-19 18:45 | NUR ---
I have reviewed this patient and I concur with the Shift Assessment completed by the Licensed Practical Nurse today this shift.
[2018-09-19 20:00] VITALS: BP 122/87
--- NOTE | 2018-09-20 04:37 | NUR ---
PT RESTING IN BED. EYES CLOSED. NO SIGNS OF DISTRESS. BREATHING EVEN AND UNLABORED. IV SITE LT HAND DRESSING CLEAN DRY AND INTACT. NO SIGNS OF INFECTION. BOWEL SOUNDS ACTIVE. NO LOWER LEG SWELLING. WILL CONTINUE PLAN OF CARE. CALL LIGHT IN REACH. BED LOWERED AND LOCKED. BED RAILS UP X2.
--- NOTE | 2018-09-20 06:18 | NUR ---
RESTING,WITHOUT NEEDS.CALL LIGHT IN REACH
--- NOTE | 2018-09-20 07:41 | NUR ---
RECIEVED REPORT. PATIENT IS ALERT AND AWAKE. HE IS LAYING ON HIS RIGHT SIDE. HE DENIES ANY NEEDS AT THIS TIME.
--- NOTE | 2018-09-20 08:26 | NUR ---
PATIENT IS ALERT AND AWAKE. HE IS SITTING UP IN BED REQUESTING COFFEE. NORMAL SALINE INFUSING ORDERED. HE REPORTS THAT HE DOES NOT WANT THE NICOTINE PATCH, HE WANTS TO GO OUTSIDE TO SMOKE. HIS B/P IS 130/91 . WILL CONTINUE TO MONITOR CLOSELY.
[2018-09-20 09:11] VITALS: BP 130/91
--- NOTE | 2018-09-20 11:55 | MORECARE ---
CASE MANAGEMENT DISCHARGE SUMMARY PATIENT: ESTRELLA STEPHEN UNIT: [id number] ADM DATE: 09/11/18 AGE: 63 : 59 SEX: M ROOM/BED: D.2229 AUTHOR: EVELYN BAUER PHYSICIAN: REFERRING PHYSICIAN: RUPAL BAEZ MD DATE OF SERVICE: 09/20/18 Discharge Plan Patient Name: ESTRELLA STEPHEN Facility: [facility] : 1955 Planned Disposition: Anticipated Discharge Date: Discharge Date: Expected LOS: Initial Reviewer: [id number] Initial Review Date: 09/13/2018 Generated: 09/20/18 12:54 pm Comments DCP- Discharge Planning Updated by [id number]: Maliha Dudley on 09/20/18 10:[address] Patient Name: ESTRELLA STEPHEN Admission Status: ER Accout number: [id number] Admission Date: 09-11-2018 : 1955 Admission Diagnosis:OTHER INJURY OF UNSPECIFIED BODY REGION, INITIAL ENCOUN Attending: LIZANDRO BAEZ Current LOS: 9 Anticipated DC Date: Planned Disposition: Primary Insurance: [employer] Discharge Planning Comments: CM CALLED SUPERVISOR ELECTRONICS PROCESSING MS RUBIO AT PHONE [phone]. I LEFT A MS FOR HER TO CALL ME BACK. PATIENT IS NOW ON PO ANTIBIOTICS AND WOULD ONLY NEED WOUND CARE. PATIENT STAYS WITH FRIENDS, DOESN'T HAVE A PERMANENT ADDRESS. Electronic Gluer: Maliha Dudley DCP- Discharge Planning Updated by [id number]: Maliha Dudley on 09/19/18 11:[address] Patient Name: ESTRELLA STEPHEN Admission Status: ER Accout number: [id number] Admission Date: 09-11-2018 : 1955 Admission Diagnosis: Attending: LIZANDRO BAEZ Current LOS: 8 Anticipated DC Date: Planned Disposition: Primary Insurance: [employer] Discharge Planning Comments: CM SPOKE WITH THE [place] MS RUBIO. THEY WOULD LIKE TO KNOW DURATION OF ANTIOBIOTICS AND WOUND CARE AND THE PLAN IS FOR THEM TO ACCEPT AND TRANSFER TO THE VA. MS. RUBIO IS WORKING ON IT, CM WILL CALL HER WITH DETAILS OF TREATMENT. CM TO FOLLOW. Electronic Gluer: Maliha Dudley DCP- Discharge Planning Updated by [email or web address]: Maliha Dudley on 09/18/18 2:[address] Patient Name: ESTRELLA STEPHEN Admission Status: ER Accout number: [id number] Admission Date: 09-11-2018 : 1955 Admission Diagnosis: Attending: LIZANDRO BAEZ Current LOS: 7 Anticipated DC Date: Planned Disposition: Primary Insurance: [employer] Discharge Planning Comments: KERRI CHRISTIE FROM [facility] CALLED FROM [phone] ABOUT PATIENT NEEDS. I INFORMED HER THAT MS RUBIO SAID SHE WOULD WORK ON PLACEMENT TODAY. PATIENT NEEDS A SNF. MS CHRISTIE IS CHECKING AND WILL CALL ME BACK. Electronic Gluer: Mlaiha Dudley DCP- Discharge Planning Updated by [id number]: Maliha Dudley on 09/15/18 4:[address] Patient Name: ESTRELLA STEPHEN Admission Status: ER Accout number: [id number] Admission Date: 09-11-2018 : 1955 Admission Diagnosis: Attending: LIZANDRO BAEZ Current LOS: 4 Anticipated DC Date: Planned Disposition: Primary Insurance: [employer] Discharge Planning Comments: SUPERVISOR ELECTRONICS PROCESSING MS RUBIO PHONE [phone] IS WORKING ON PLACEMENT. SHE STATES IT WILL BE TUESDAY BEFORE SHE COULD GET PLACEMENT ON HIM AND STATES DR SEWELL WILL OVER SEE PATIENT WHEN DISCHARGED. CM TO FOLLOW AND ASSIST NEEDED. EXPECTING A CALL FROM JOANNE TUESDAY. Electronic Gluer: Maliha Dudley DCP- Discharge Planning Updated by [id number]: Maliha Dudley on 09/14/18 3:[address] Patient Name: ESTRELLA STEPHEN Admission Status: ER Accout number: [id number] Admission Date: 09-11-2018 : 1955 Admission Diagnosis: Attending: LIZANDRO BAEZ Current LOS: 3 Anticipated DC Date: Planned Disposition: Primary Insurance: [employer] Discharge Planning Comments: CM SPOKE WITH BRITNI AT THE [place] AFTER TALKING TO DR. BAEZ ABOUT DC PLANNING. [place] NOTIFIED THAT PATIENT WILL NEED HOME HEALTH OR SOME WAY TO GET WOUND PACKING DAILY. KAYLA RUBIO [place] SUPERVISOR ELECTRONICS PROCESSING TO CONTACT CM TOMORROW ABOUT GETTING PATIENT DISCHARGED/PLACED. JOANNE PHONE NUMBER IS [phone]. CM TO FOLLOW. Electronic Gluer: Maliha Dudley DCP- Discharge Planning Updated by [id number]: Mlaiha Dudley on 09/13/18 10:[address] Patient Name: ESTRELLA STEPHEN Admission Status: ER Accout number: [id number] Admission Date: 09-11-2018 : 1955 Admission Diagnosis: Attending: LIZANDRO BAEZ Current LOS: 2 Anticipated DC Date: Planned Disposition: Primary Insurance: [employer] Discharge Planning Comments: CM MET WITH PATIENT ABOUT DC/PLANNING NEEDS. NEEDS WOUND CARE DAILY. PATIENT IS VA AND STATES HERE FROM [place], APPLIED FOR [facility] TODAY. STATES LIVING ARRANGEMENT IS HE HAS JUMPED AROUND TO DIFFERENT FRIENDS, NO PCP BUT IS VA IN [place]. SIGNED ANISA FOR ANY FACILITY. I WILL CONTACT VA TO CHECK ON HIS WOUND CARE DC NEEDS. CM TO FOLLOW AND ASSIST NEEDED. Electronic Gluer: Maliha Dudley DCPIA - Discharge Planning Initial Assessment Updated by [id number]: Maliha Dudley on 09/13/18 11:54 am * Is the patient Alert and Oriented? Yes * PCP VA IN [place]. NONE HERE * Preadmission Environment Home with Family * ADLs Independent * Equipment Cane * Community resources currently utilized None * Additional services required to return to the preadmission environment? Yes * Can the patient safely return to the preadmission environment? No * Has this patient been hospitalized within the prior 30 days at any hospital? No Coverage Notice Reviewer: [id number] - Maliha Dudley Notice Issued Date-Time: 09/13/2018 11:59 Notice Type: Patient Choice Letter Notice Delivered To: Patient Relationship to Patient: Self Criminal Records Technician Name: Delivery Method: HAND - Hand Delivered Gracia Days: Prior Verbal Notification: Recipient Understood Notice: Yes Recipient Signature: Yes Med Rec Note Co-signed by Attending: Coverage Notice Comment: WANTS WOUND CARE WITH VA OR ANY THEY RECOMMEND. Last DP export: 09/19/18 11:23 a Patient Name: ESTRELLA STEPHEN Page 45114 at 1155 All edits/amendments must be made on the electronic document DICTATION DATE: 09/20/18 1154 ASSEMBLY LINE UPHOLSTERER: CALEB 09/20/18 1154 RPT#: [id number] DC DATE: STATUS: ADM IN [facility] [address] [place] [address] END OF REPORT
[2018-09-20 12:47] VITALS: BP 125/83
[2018-09-20 17:01] VITALS: BP 144/86
--- NOTE | 2018-09-20 17:29 | NUR ---
PATIENT IS SITTING UP IN BED. DRESSING CHANGE COMPLETED TO HIS RIGHT TESTICLE. GAVE HIM PAIN MEDICATIONS ORDERED BEFORE REMOVING THE PACKING AND REPACKING ORDERED. PATIENT TOLERATED. REDRESSED PATIENTS IV ON HIS LEFT HAND.
--- NOTE | 2018-09-20 19:59 | NUR ---
PATIENT UP WALKING IN ROOM RETRUNED TO BED JOSEFT AND KIRITED ABLE TO VOICE NEEDS AND WANTS TO STAFF. ON ROOM AIR, IV TO LEFT HAND WITH NS AT 75ML/HR, WET TO DRY DRESSING CDI TO RIGHT TESTICULAR AREA. CALL LIGHT AND WATER IN REACH, BED LOW, NO NEEDS NOTED OR STATED AT THIS TIME.
[2018-09-20 20:00] VITALS: BP 128/81
[2018-09-21 04:00] VITALS: BP 130/85
--- NOTE | 2018-09-21 07:30 | NUR ---
PT RESTING IN BED WITH EYES OPEN. NO S/S OF DISTRESS, BREATHING EVEN AND NONLABORED. IV LOCATED TO LEFT HAND RUNNING NS @ 75ML/HR. ALERT AND ORIENTED X4. EMPTIED 800ML OF CLEAR YELLOW URINE OUT OF URINAL. DENIES ANY FURTHER NEEDS AT THIS TIME. BED LOW, CALL LIGHT IN REACH, RAILS UP X 2. WILL CONTINUE TO MONITOR.
[2018-09-21 09:15] VITALS: BP 139/92
[2018-09-21 13:10] VITALS: BP 134/79
--- NOTE | 2018-09-21 13:15 | NUR ---
Nutrition follow-up: Diet: Regular PO intake 100% of all meals Labs reviewed Wt: 197# +BM Wound is healing RDN following.
[2018-09-21 18:10] VITALS: BP 131/88
--- NOTE | 2018-09-21 19:15 | NUR ---
PT ALERT AND ORIENTED. LAYING IN SUPINE POSITION. DRESSING TO THE RIGHT GROIN IS CLEAN DRY AND INTACT. PATIENT STATES "PAIN IS OKAY RIGHT NOW." IV TO THE LEFT HAND INFUSING NS @ 75. URINAL EMPTIED AND CHARTED. ROOM AIR. DENIES FURTHER ISSUES AT THIS TIME. CALL LIGHT IN REACH. EDUCATED ON PAIN MANAGEMENT. PATIENT VERBALIZES UNDERSTANDING. CPOC.
[2018-09-21 19:55] VITALS: BP 136/88
[2018-09-22] VITALS: BP 102/65
--- NOTE | 2018-09-22 02:55 | NUR ---
I have reviewed this patient and I concur with the Shift Assessment completed by the Licensed Practical Nurse today this shift.
[2018-09-22 04:00] VITALS: BP 137/83
--- NOTE | 2018-09-22 07:20 | NUR ---
ALERT AND ORIENTED. UP AD SUKUMAR. DRESSING TO SCROTUM, C/D/I. IV TO LEFT HAND, NS INFUSING @ 75ML/HR. SITE PATENT WITHOUT REDNESS OR SWELLING. NO C/O PAIN. NO S/S OF ACUTE DISTRESS NOTED. PT DENIES ANY NEEDS. CALL LIGHT IN REACH. WILL CONTINUE TO MONITOR.
[2018-09-22 08:30] VITALS: BP 138/87
--- NOTE | 2018-09-22 12:37 | MORECARE ---
CASE MANAGEMENT DISCHARGE SUMMARY PATIENT: ESTRELLA STEPHEN UNIT: [id number] ADM DATE: 09/11/18 AGE: 63 : 59 SEX: M ROOM/BED: D.2229 AUTHOR: EVELYN BAUER PHYSICIAN: REFERRING PHYSICIAN: RUPAL BAEZ MD DATE OF SERVICE: 09/22/18 Discharge Plan Patient Name: ESTRELLA STEPHEN Facility: [facility]:[place] : 1955 Planned Disposition: Anticipated Discharge Date: Discharge Date: Expected LOS: Initial Reviewer: [id number] Initial Review Date: 09/13/2018 Generated: 09/22/18 1:37 pm Comments DCP- Discharge Planning Updated by [id number]: Maliha Dudley on 09/20/18 10:[address] Patient Name: ESTRELLA STEPHEN Admission Status: ER Accout number: [id number] Admission Date: 09-11-2018 : 1955 Admission Diagnosis:OTHER INJURY OF UNSPECIFIED BODY REGION, INITIAL ENCOUN Attending: LIZANDRO BAEZ Current LOS: 9 Anticipated DC Date: Planned Disposition: Primary Insurance: [employer] Discharge Planning Comments: CM CALLED MANAGER OF EMPLOYEE RELATIONS MS RUBIO AT PHONE [phone]. I LEFT A MS FOR HER TO CALL ME BACK. PATIENT IS NOW ON PO ANTIBIOTICS AND WOULD ONLY NEED WOUND CARE. PATIENT STAYS WITH FRIENDS, DOESN'T HAVE A PERMANENT ADDRESS. Hanging Flags Decorator: Maliha Dudley DCP- Discharge Planning Updated by [id number]: Maliha Dudley on 09/19/18 11:[address] Patient Name: ESTRELLA STEPHEN Admission Status: ER Accout number: [id number] Admission Date: 09-11-2018 : 1955 Admission Diagnosis: Attending: LIZANDRO BAEZ Current LOS: 8 Anticipated DC Date: Planned Disposition: Primary Insurance: [employer] Discharge Planning Comments: CM SPOKE WITH THE AL MS RUBIO. THEY WOULD LIKE TO KNOW DURATION OF ANTIOBIOTICS AND WOUND CARE AND THE PLAN IS FOR THEM TO ACCEPT AND TRANSFER TO THE [facility]. MS. RUBIO IS WORKING ON IT, CM WILL CALL HER WITH DETAILS OF TREATMENT. CM TO FOLLOW. Hanging Flags Decorator: Maliha Dudley DCP- Discharge Planning Updated by [email or web address]: Maliha Dudley on 09/18/18 2:[address] Patient Name: ESTRELLA STEPHEN Admission Status: ER Accout number: [id number] Admission Date: 09-11-2018 : 1955 Admission Diagnosis: Attending: LIZANDRO BAEZ Current LOS: 7 Anticipated DC Date: Planned Disposition: Primary Insurance: [employer] Discharge Planning Comments: KERRI CHRISTIE FROM [facility] CALLED FROM [phone] ABOUT PATIENT NEEDS. I INFORMED HER THAT MS RUBIO SAID SHE WOULD WORK ON PLACEMENT TODAY. PATIENT NEEDS A SNF. MS CHRISTIE IS CHECKING AND WILL CALL ME BACK. Hanging Flags Decorator: Maliha Dudley DCP- Discharge Planning Updated by [id number]: Maliha Dudley on 09/15/18 4:[address] Patient Name: ESTRELLA STEPHEN Admission Status: ER Accout number: [id number] Admission Date: 09-11-2018 : 1955 Admission Diagnosis: Attending: LIZANDRO BAEZ Current LOS: 4 Anticipated DC Date: Planned Disposition: Primary Insurance: [employer] Discharge Planning Comments: MANAGER OF EMPLOYEE RELATIONS MS RUBIO PHONE [phone] IS WORKING ON PLACEMENT. SHE STATES IT WILL BE TUESDAY BEFORE SHE COULD GET PLACEMENT ON HIM AND STATES DR SEWELL WILL OVER SEE PATIENT WHEN DISCHARGED. CM TO FOLLOW AND ASSIST NEEDED. EXPECTING A CALL FROM JOANNE TUESDAY. Hanging Flags Decorator: Maliha Dudley DCP- Discharge Planning Updated by [id number]: Maliha Dudley on 09/14/18 3:[address] Patient Name: ESTRELLA STEPHEN Admission Status: ER Accout number: [id number] Admission Date: 09-11-2018 : 1955 Admission Diagnosis: Attending: LIZANDRO BAEZ Current LOS: 3 Anticipated DC Date: Planned Disposition: Primary Insurance: [employer] Discharge Planning Comments: CM SPOKE WITH BRITNI AT THE AL AFTER TALKING TO DR. BAEZ ABOUT DC PLANNING. AL NOTIFIED THAT PATIENT WILL NEED HOME HEALTH OR SOME WAY TO GET WOUND PACKING DAILY. KAYLA RUBIO AL MANAGER OF EMPLOYEE RELATIONS TO CONTACT CM TOMORROW ABOUT GETTING PATIENT DISCHARGED/PLACED. JOANNE PHONE NUMBER IS [phone]. CM TO FOLLOW. Hanging Flags Decorator: Maliha Dudley DCP- Discharge Planning Updated by [id number]: Maliha Dudley on 09/13/18 10:[address] Patient Name: ESTRELLA STEPHEN Admission Status: ER Accout number: [id number] Admission Date: 09-11-2018 : 1955 Admission Diagnosis: Attending: LIZANDRO BAEZ Current LOS: 2 Anticipated DC Date: Planned Disposition: Primary Insurance: [employer] Discharge Planning Comments: CM MET WITH PATIENT ABOUT DC/PLANNING NEEDS. NEEDS WOUND CARE DAILY. PATIENT IS [facility] AND STATES HERE FROM [place], APPLIED FOR [facility] TODAY. STATES LIVING ARRANGEMENT IS HE HAS JUMPED AROUND TO DIFFERENT FRIENDS, NO PCP BUT IS VA IN [place]. SIGNED ANISA FOR ANY FACILITY. I WILL CONTACT VA TO CHECK ON HIS WOUND CARE DC NEEDS. CM TO FOLLOW AND ASSIST NEEDED. Hanging Flags Decorator: Malihajeana Dudley DCPIA - Discharge Planning Initial Assessment Updated by [id number]: Maliha Dudley on 09/13/18 11:54 am * Is the patient Alert and Oriented? Yes * PCP VA IN [place]. NONE HERE * Preadmission Environment Home with Family * ADLs Independent * Equipment Cane * Community resources currently utilized None * Additional services required to return to the preadmission environment? Yes * Can the patient safely return to the preadmission environment? No * Has this patient been hospitalized within the prior 30 days at any hospital? No External Providers External Provider: OTHER-OTHER Next Contact Date: Service Request Date: Service Type: Resolution: Reviewer: Comments: Coverage Notice Reviewer: [id number] - Malihajeana Dudley Notice Issued Date-Time: 09/13/2018 11:59 Notice Type: Patient Choice Letter Notice Delivered To: Patient Relationship to Patient: Self Industrial Electrician Journeyman Name: Delivery Method: HAND - Hand Delivered Gracia Days: Prior Verbal Notification: Recipient Understood Notice: Yes Recipient Signature: Yes Med Rec Note Co-signed by Attending: Coverage Notice Comment: WANTS WOUND CARE WITH VA OR ANY THEY RECOMMEND. Last DP export: 09/20/18 10:55 a Patient Name: ESTRELLA STEPHEN Page [id number] at 1237 All edits/amendments must be made on the electronic document DICTATION DATE: 09/22/18 1236 LOCAL TANKER TRUCK DRIVER: CALEB 09/22/18 1236 RPT#: [id number] DC DATE: STATUS: ADM IN [facility] [address] [place] [address] END OF REPORT
[2018-09-22 12:47] VITALS: BP 135/84
--- NOTE | 2018-09-22 12:51 | MORECARE ---
CASE MANAGEMENT DISCHARGE SUMMARY PATIENT: ESTRELLA STEPHEN UNIT: [id number] ADM DATE: 09/11/18 AGE: 63 : 59 SEX: M ROOM/BED: D.2229 AUTHOR: LIZETTE,DOC PHYSICIAN: REFERRING PHYSICIAN: RUPAL BAEZ MD DATE OF SERVICE: 09/22/18 Discharge Plan Patient Name: ESTRELLA STEPHEN Facility: [facility]:[place] : 1955 Planned Disposition: Anticipated Discharge Date: Discharge Date: Expected LOS: Initial Reviewer: [id number] Initial Review Date: 09/13/2018 Generated: 09/22/18 1:51 pm Comments DCP- Discharge Planning Updated by [id number]: Maliha Dudley on 09/22/18 11:[address] Patient Name: ESTRELLA STEPHEN Admission Status: ER Accout number: [id number] Admission Date: 09-11-2018 : 1955 Admission Diagnosis:OTHER INJURY OF UNSPECIFIED BODY REGION, INITIAL ENCOUN Attending: LIZANDRO BAEZ Current LOS: 11 Anticipated DC Date: Planned Disposition: Primary Insurance: [employer] Discharge Planning Comments: CM FAXED CLINICALS TO MS MANNING AT THE [place], THEY ARE WORKING ON TRYING TO GET HIM ACCEPTED TO THEIR [facility]. CM TO FOLLOW AND ASSIST. Information Coder: Maliha Dudley DCP- Discharge Planning Updated by [id number]: Maliha Dudley on 09/20/18 10:[address] Patient Name: ESTRELLA STEPHEN Admission Status: ER Accout number: [id number] Admission Date: 09-11-2018 : 1955 Admission Diagnosis:OTHER INJURY OF UNSPECIFIED BODY REGION, INITIAL ENCOUN Attending: LIZANDRO BAEZ Current LOS: 9 Anticipated DC Date: Planned Disposition: Primary Insurance: [employer] Discharge Planning Comments: CM CALLED PUBLIC SERVICE OFFICER MS RUBIO AT PHONE [phone]. I LEFT A MSG FOR HER TO CALL ME BACK. PATIENT IS NOW ON PO ANTIBIOTICS AND WOULD ONLY NEED WOUND CARE. PATIENT STAYS WITH FRIENDS, DOESN'T HAVE A PERMANENT ADDRESS. Information Coder: Maliha Dudley DCP- Discharge Planning Updated by [email or web address]: Maliha Dudley on 09/19/18 11:[address] Patient Name: ESTRELLA STEPHEN Admission Status: ER Accout number: [id number] Admission Date: 09-11-2018 : 1955 Admission Diagnosis: Attending: LIZANDRO BAEZ Current LOS: 8 Anticipated DC Date: Planned Disposition: Primary Insurance: [employer] Discharge Planning Comments: CM SPOKE WITH THE [place] MS RUBIO. THEY WOULD LIKE TO KNOW DURATION OF ANTIOBIOTICS AND WOUND CARE AND THE PLAN IS FOR THEM TO ACCEPT AND TRANSFER TO THE VA. MS. RUBIO IS WORKING ON IT, CM WILL CALL HER WITH DETAILS OF TREATMENT. CM TO FOLLOW. Information Coder: Maliha Dudley DCP- Discharge Planning Updated by [id number]: Maliha Dudley on 09/18/18 2:[address] Patient Name: ESTRELLA STEPHEN Admission Status: ER Accout number: [id number] Admission Date: 09-11-2018 : 1955 Admission Diagnosis: Attending: ILZANDRO BAEZ Current LOS: 7 Anticipated DC Date: Planned Disposition: Primary Insurance: [employer] Discharge Planning Comments: KERRI CHRISTIE FROM [facility] CALLED FROM [phone] ABOUT PATIENT NEEDS. I INFORMED HER THAT MS RUBIO SAID SHE WOULD WORK ON PLACEMENT TODAY. PATIENT NEEDS A SNF. MS CHRISTIE IS CHECKING AND WILL CALL ME BACK. Information Coder: Maliha Dudley NCP- Discharge Planning Updated by [id number]: Maliha Dudley on 09/15/18 4:[address] Patient Name: ESTRELLA STEPHEN Admission Status: ER Accout number: [id number] Admission Date: 09-11-2018 : 1955 Admission Diagnosis: Attending: LIZANDRO BAEZ Current LOS: 4 Anticipated DC Date: Planned Disposition: Primary Insurance: [employer] Discharge Planning Comments: PUBLIC SERVICE OFFICER MS RUBIO PHONE [phone] IS WORKING ON PLACEMENT. SHE STATES IT WILL BE TUESDAY BEFORE SHE COULD GET PLACEMENT ON HIM AND STATES DR SEWELL WILL OVER SEE PATIENT WHEN DISCHARGED. CM TO FOLLOW AND ASSIST NEEDED. EXPECTING A CALL FROM JOANNE TUESDAY. Information Coder: Maliha Dudley NCP- Discharge Planning Updated by [id number]: Maliha Dudley on 09/14/18 3:[address] Patient Name: ESTRELLA STEPHEN Admission Status: ER Accout number: [id number] Admission Date: 09-11-2018 : 1955 Admission Diagnosis: Attending: LIZANDRO BAEZ Current LOS: 3 Anticipated DC Date: Planned Disposition: Primary Insurance: [facility] Discharge Planning Comments: CM SPOKE WITH BRITNI AT THE [place] AFTER TALKING TO DR. BAEZ ABOUT DC PLANNING. [place] NOTIFIED THAT PATIENT WILL NEED HOME HEALTH OR SOME WAY TO GET WOUND PACKING DAILY. KAYLA RUBIO [place] PUBLIC SERVICE OFFICER TO CONTACT CM TOMORROW ABOUT GETTING PATIENT DISCHARGED/PLACED. JOANNE PHONE NUMBER IS [phone]. CM TO FOLLOW. Information Coder: Maliha Dudley DCP- Discharge Planning Updated by [id number]: Maliha Dudley on 09/13/18 10:[address] Patient Name: ESTRELLA STEPHEN Admission Status: ER Accout number: [id number] Admission Date: 09-11-2018 : 1955 Admission Diagnosis: Attending: LIZANDRO BAEZ Current LOS: 2 Anticipated DC Date: Planned Disposition: Primary Insurance: [facility] Discharge Planning Comments: CM MET WITH PATIENT ABOUT DC/PLANNING NEEDS. NEEDS WOUND CARE DAILY. PATIENT IS VA AND STATES HERE FROM [place], APPLIED FOR [facility] TODAY. STATES LIVING ARRANGEMENT IS HE HAS JUMPED AROUND TO DIFFERENT FRIENDS, NO PCP BUT IS VA IN [place]. SIGNED ANISA FOR ANY FACILITY. I WILL CONTACT [place] TO CHECK ON HIS WOUND CARE DC NEEDS. CM TO FOLLOW AND ASSIST NEEDED. Information Coder: Maliha Dudley DCPIA - Discharge Planning Initial Assessment Updated by [id number]: Maliha Dudley on 09/13/18 11:54 am * Is the patient Alert and Oriented? Yes * PCP VA IN [place]. NONE HERE * Preadmission Environment Home with Family * ADLs Independent * Equipment Cane * Community resources currently utilized None * Additional services required to return to the preadmission environment? Yes * Can the patient safely return to the preadmission environment? No * Has this patient been hospitalized within the prior 30 days at any hospital? No Coverage Notice Reviewer: [id number] - Maliha Dudley Notice Issued Date-Time: 09/13/2018 11:59 Notice Type: Patient Choice Letter Notice Delivered To: Patient Relationship to Patient: Self Resistor Tester Name: Delivery Method: HAND - Hand Delivered Gracia Days: Prior Verbal Notification: Recipient Understood Notice: Yes Recipient Signature: Yes Med Rec Note Co-signed by Attending: Coverage Notice Comment: WANTS WOUND CARE WITH VA OR ANY THEY RECOMMEND. Last DP export: 09/22/18 11:37 a Patient Name: ESTRELLA STEPHEN Page [phone] at 1251 All edits/amendments must be made on the electronic document DICTATION DATE: 09/22/18 125 AUDIO/VISUAL MANAGER: CALEB 09/22/18 1251 RPT#: [id number] DC DATE: STATUS: ADM IN [facility] [address] [place] [address] END OF REPORT
[2018-09-22 16:51] VITALS: BP 131/74
--- NOTE | 2018-09-22 18:51 | MORECARE ---
CASE MANAGEMENT DISCHARGE SUMMARY PATIENT: ESTRELLA STEPHEN UNIT: [id number] ADM DATE: 09/11/18 AGE: 63 : 59 SEX: M ROOM/BED: D.2229 AUTHOR: LIZETTEDOC PHYSICIAN: REFERRING PHYSICIAN: RUPAL BAEZ MD DATE OF SERVICE: 09/22/18 Discharge Plan Patient Name: ESTRELLA STEPHEN Facility: [facility]:[place] : 1955 Planned Disposition: Anticipated Discharge Date: Discharge Date: Expected LOS: Initial Reviewer: [id number] Initial Review Date: 09/13/2018 Generated: 09/22/18 7:51 pm Comments DCP- Discharge Planning Updated by [email or web address]: Maliha Dudley on 09/22/18 5:[address] Patient Name: ESTRELLA STEPHEN Admission Status: ER Accout number: [id number] Admission Date: 09-11-2018 : 1955 Admission Diagnosis:OTHER INJURY OF UNSPECIFIED BODY REGION, INITIAL ENCOUN Attending: LIZANDRO BAEZ Current LOS: 11 Anticipated DC Date: Planned Disposition: Primary Insurance: [employer] Discharge Planning Comments: CM FAXED CLINICALS TO MS MANNING AT THE [place], THEY ARE WORKING ON TRYING TO GET HIM ACCEPTED TO THEIR [facility]. CM TO FOLLOW AND ASSIST. Shift Superintendent Caustic Cresylate: Maliha Dudley Appended by Maliha Dudley on 09/22/2018 18:49 CDT: CM FAXED VA CHECKLIST TO [facility] AT [phone]. INFORMATION SAVED IN IMAGES. DCP- Discharge Planning Updated by [id number]: Maliha Dudley on 09/20/18 10:[address] Patient Name: ESTRELLA STEPHEN Admission Status: ER Accout number: [id number] Admission Date: 09-11-2018 : 1955 Admission Diagnosis:OTHER INJURY OF UNSPECIFIED BODY REGION, INITIAL ENCOUN Attending: LIZANDRO BAEZ Current LOS: 9 Anticipated DC Date: Planned Disposition: Primary Insurance: [employer] Discharge Planning Comments: CM CALLED DEWATERER OPERATOR JOANNE AT PHONE [phone]. I LEFT A MS FOR HER TO CALL ME BACK. PATIENT IS NOW ON PO ANTIBIOTICS AND WOULD ONLY NEED WOUND CARE. PATIENT STAYS WITH FRIENDS, DOESN'T HAVE A PERMANENT ADDRESS. Shift Superintendent Caustic Cresylate: Maliha Dudley DCP- Discharge Planning Updated by [id number]: Maliha Dudley on 09/19/18 11:[address] Patient Name: ESTRELLA STEPHEN Admission Status: ER Accout number: [id number] Admission Date: 09-11-2018 : 1955 Admission Diagnosis: Attending: LIZANDRO BAEZ Current LOS: 8 Anticipated DC Date: Planned Disposition: Primary Insurance: [employer] Discharge Planning Comments: CM SPOKE WITH THE [place] MS RUBIO. THEY WOULD LIKE TO KNOW DURATION OF ANTIOBIOTICS AND WOUND CARE AND THE PLAN IS FOR THEM TO ACCEPT AND TRANSFER TO THE VA. MS. RUBIO IS WORKING ON IT, CM WILL CALL HER WITH DETAILS OF TREATMENT. CM TO FOLLOW. Shift Superintendent Caustic Cresylate: Maliha Dudley [facility]- Discharge Planning Updated by [id number]: Maliah Dudley on 09/18/18 2:[address] Patient Name: ESTRELLA STEPHEN Admission Status: ER Accout number: [id number] Admission Date: 09-11-2018 : 1955 Admission Diagnosis: Attending: LIZANDRO BAEZ Current LOS: 7 Anticipated DC Date: Planned Disposition: Primary Insurance: [employer] Discharge Planning Comments: KERRI CHRISTIE FROM [facility] CALLED FROM [phone] ABOUT PATIENT NEEDS. I INFORMED HER THAT MS RUBIO SAID SHE WOULD WORK ON PLACEMENT TODAY. PATIENT NEEDS A SNF. MS CHRISTIE IS CHECKING AND WILL CALL ME BACK. Shift Superintendent Caustic Cresylate: Maliha Dudley [facility]- Discharge Planning Updated by [id number]: Maliha Dudley on 09/15/18 4:[address] Patient Name: ESTRELLA STEPHEN Admission Status: ER Accout number: [id number] Admission Date: 09-11-2018 : 1955 Admission Diagnosis: Attending: LIZANDRO BAEZ Current LOS: 4 Anticipated DC Date: Planned Disposition: Primary Insurance: [employer] Discharge Planning Comments: DEWATERER OPERATOR MS RUBIO PHONE [phone] IS WORKING ON PLACEMENT. SHE STATES IT WILL BE TUESDAY BEFORE SHE COULD GET PLACEMENT ON HIM AND STATES DR SEWELL WILL OVER SEE PATIENT WHEN DISCHARGED. CM TO FOLLOW AND ASSIST NEEDED. EXPECTING A CALL FROM JOANNE TUESDAY. Shift Superintendent Caustic Cresylate: Maliha Dudley [facility]- Discharge Planning Updated by [id number]: Maliha Dudley on 09/14/18 3:[address] Patient Name: ESTRELLA STEPHEN Admission Status: ER Accout number: [id number] Admission Date: 09-11-2018 : 1955 Admission Diagnosis: Attending: LIZANDRO BAEZ Current LOS: 3 Anticipated DC Date: Planned Disposition: Primary Insurance: [facility] Discharge Planning Comments: CM SPOKE WITH BRITNI AT THE [place] AFTER TALKING TO DR. BAEZ ABOUT DC PLANNING. [place] NOTIFIED THAT PATIENT WILL NEED HOME HEALTH OR SOME WAY TO GET WOUND PACKING DAILY. KAYLA RUBIO [place] DEWATERER OPERATOR TO CONTACT CM TOMORROW ABOUT GETTING PATIENT DISCHARGED/PLACED. JOANNE PHONE NUMBER IS [phone]. CM TO FOLLOW. Shift Superintendent Caustic Cresylate: Maliha Dudley DCP- Discharge Planning Updated by [id number]: Maliha Dudley on 09/13/18 10:[address] Patient Name: ESTRELLA STEPHEN Admission Status: ER Accout number: [id number] Admission Date: 09-11-2018 : 1955 Admission Diagnosis: Attending: LIZANDRO BAEZ Current LOS: 2 Anticipated DC Date: Planned Disposition: Primary Insurance: [facility] Discharge Planning Comments: CM MET WITH PATIENT ABOUT DC/PLANNING NEEDS. NEEDS WOUND CARE DAILY. PATIENT IS VA AND STATES HERE FROM [place], APPLIED FOR [facility] TODAY. STATES LIVING ARRANGEMENT IS HE HAS JUMPED AROUND TO DIFFERENT FRIENDS, NO PCP BUT IS VA IN [place]. SIGNED ANISA FOR ANY FACILITY. I WILL CONTACT [place] TO CHECK ON HIS WOUND CARE DC NEEDS. CM TO FOLLOW AND ASSIST NEEDED. Shift Superintendent Caustic Cresylate: Maliha Dudley DCPIA - Discharge Planning Initial Assessment Updated by [id number]: Maliha Dudley on 09/13/18 11:54 am * Is the patient Alert and Oriented? Yes * PCP VA IN [place]. NONE HERE * Preadmission Environment Home with Family * ADLs Independent * Equipment Cane * Community resources currently utilized None * Additional services required to return to the preadmission environment? Yes * Can the patient safely return to the preadmission environment? No * Has this patient been hospitalized within the prior 30 days at any hospital? No Coverage Notice Reviewer: [id number] - Maliha Dudley Notice Issued Date-Time: 09/13/2018 11:59 Notice Type: Patient Choice Letter Notice Delivered To: Patient Relationship to Patient: Self Hat Parts Cutter Machine Name: Delivery Method: HAND - Hand Delivered Gracia Days: Prior Verbal Notification: Recipient Understood Notice: Yes Recipient Signature: Yes Med Rec Note Co-signed by Attending: Coverage Notice Comment: WANTS WOUND CARE WITH [place] OR ANY THEY RECOMMEND. Last DP export: 09/22/18 11:51 a Patient Name: ESTRELLA STEPHEN Page [phone] at 1851 All edits/amendments must be made on the electronic document DICTATION DATE: 09/22/181849 BRANCH OPERATIONS COORDINATOR: CALEB 09/22/181849 RPT#: [id number] DC DATE: STATUS: ADM IN [facility] [address] [place] [address] END OF REPORT
[2018-09-22 20:00] VITALS: BP 123/84
--- NOTE | 2018-09-23 01:33 | NUR ---
ALERT RESTING IN BED, DENIES PAIN, SEE SHIFT ASSESSMENT, CALL LIGHT IN REACH
[2018-09-23 04:00] VITALS: BP 110/70
[2018-09-23 09:35] VITALS: BP 126/79
--- NOTE | 2018-09-23 12:47 | NUR ---
PT RESTING IN BED. NO SIGNS OF DISTRESS. IV TO RIGHT HAND PATENT NO REDNESS OR TENDERNESS. HAS DRESSING TO RIGH TESTICAL CLEAN AND INTACT. DENIES ANY FUTHER NEED AT THIS TIME. CALL LIGHT IN REACH. BED LOW POSITION. NO FAMILY AT BEDSIDE AT THIS TIME.
[2018-09-23 17:16] VITALS: BP 131/91
--- NOTE | 2018-09-23 18:37 | NUR ---
I have reviewed this patient and I concur with the Shift Assessment completed by the Licensed Practical Nurse today this shift.
[2018-09-23 20:00] VITALS: BP 116/80
--- NOTE | 2018-09-23 20:00 | NUR ---
ALERT RESTING IN BED DENIES PAIN OR NEEDS AT THIS TIME, CALL LIGHT IN REACH
[2018-09-24] VITALS: BP 130/75
[2018-09-24 04:00] VITALS: BP 114/69
--- NOTE | 2018-09-24 07:25 | NUR ---
ALERT AND ORIENTED, WATCHING TELEVISION. NO C/O PAIN. NO S/S OF ACUTE DISTRESS NOTED. UP AD SUKUMAR. DRESSING TO RIGHT SCROTUM C/D/I. IV TO RIGHT HAND, NS INFUSING @ 75ML/HR. SITE PATENT WITHOUT REDNESS OR SWELLING. PT DENIES ANY NEEDS. CALL LIGHT IN REACH. WILL CONTINUE TO MONITOR.
[2018-09-24 08:07] VITALS: BP 129/71
[2018-09-24 14:01] VITALS: BP 137/86
--- NOTE | 2018-09-24 16:43 | NUR ---
I have reviewed this patient and I concur with the Shift Assessment completed by the Licensed Practical Nurse today this shift.
--- NOTE | 2018-09-24 19:30 | NUR ---
PT LYING IN BED RESTING WITHOUT DISTRESS, ALERT AND ORIENTED. DENIES PAIN. DRESSING TO RIGHT SCROTUM CDI. IV RIGHT HAND INFILTRATED. DC'D WITH CATHETER TIP INTACT. PT REFUSED TO HAVE IV RESITED AT THIS TIME, STATES IT CAN BE PLACED IN AM. WILL ATTEMPT IV IN AM. DENIES OTHER NEEDS. CL IN REACH, WILL CTM
[2018-09-24 20:00] VITALS: BP 104/73
[2018-09-25] VITALS: BP 98/62
[2018-09-25 04:00] VITALS: BP 109/71
--- NOTE | 2018-09-25 06:53 | NUR ---
PT IS RESTING IN BED WITH EYES OPEN. RESPIRATIONS ARE EVEN AND UNLABORED. PT IS AAO X 4. PT REPORTS PAIN 5/10 DENIES NEEDS AT THIS TIME. DRESSING TO TESTICLE IS C/D/I. PT DENIES PRESENCE OF N/V. BED IS IN THE LOWEST POSITION. CALL LIGHT AND BEDSIDE TABLE ARE WITHIN REACH. SIDE RAILS X 2. PT DENIES FURTHER NEEDS. WILL CONT TO MONITOR.
[2018-09-25 08:34] VITALS: BP 124/81
--- NOTE | 2018-09-25 13:00 | NUR ---
PT REQUESTING MORPHINE PRIOR TO DRESSING CHANGE TO SCROTUM. 20G IV PLACED TO RIGHT AC X 1 ATTEMPT. PT TOLERATED WELL. IV IS SL. WILL ADDRESS PAIN. SEE EMAR
--- NOTE | 2018-09-25 13:10 | NUR ---
DRESSING CHANGED TO SCROTUM PER ORDER. PT TOLERATED WELL. BED IS IN THE LOWEST POSITION. CALL LIGHT AND BEDSIDE TABLE ARE WITHIN REACH. SIDE RAILS X 2. PT DENIES FURTHER NEEDS.
[2018-09-25 13:48] VITALS: BP 128/83
--- NOTE | 2018-09-25 14:57 | NUR ---
Nutrition follow-up: Diet: Regular PO intake ~100% of most meals Labs reviewed Wt: 197# RDN following.
[2018-09-25 17:18] VITALS: BP 112/64
--- NOTE | 2018-09-25 19:35 | NUR ---
LYING IN BED. ALERT AND ORIENTED X4. RESP EVEN AND NONLABORED. ABD DISTENDED. HERNIA NOTED. RATES PAIN IN PERINEAL AREA 6. DRSG NOTED TO SCROTAL AREA. SALINE LOCK NOTED TO RT AC. DENIES NEED FOR PAIN MED. USES URINAL. NO EDEMA NOTED. NO DISTRESS. SR ELEVATED X2. CL IN REACH.
[2018-09-25 21:15] VITALS: BP 130/84
[2018-09-26 01:53] VITALS: BP 118/69
--- NOTE | 2018-09-26 02:05 | NUR ---
HAS RESTED WELL SO FAR THIS SHIFT. NO DISTRESS. LYING IN BED WITH EYES CLOSED. RESP EVEN AND NONLABORED. CL IN REACH.
[2018-09-26 05:36] VITALS: BP 114/69
--- NOTE | 2018-09-26 08:46 | NUR ---
PT ALERT X 4. BREATH SOUNDS CLEAR BILAT. ABDOMEN DISTENDED, POSSIBLE HERNIA, TO RIGHT SIDE. IV TO RIGHT AC, SALINE LOCKED. DRESSING TO SCROTUM CDI, NO REDDNESS OR SWELLING NOTED. PT REPORTING PAIN OF 6/10, NOT WANTING MEDS AT THIS TIME, WILL MONITOR. BED LOW, CALL LIGHT IN REACH. NO OTHER NEEDS AT THIS TIME.
[2018-09-26 08:59] VITALS: BP 118/77
[2018-09-26 14:23] VITALS: BP 117/68
[2018-09-26 17:51] VITALS: BP 116/77
--- NOTE | 2018-09-26 20:00 | NUR ---
ALERT RESTING IN BED, DENIES PAIN, SEE SHIFT ASSESSMENT, CALL LIGHT IN REACH
[2018-09-26 21:16] VITALS: BP 119/56
[2018-09-27 00:56] VITALS: BP 109/62
[2018-09-27 05:54] VITALS: BP 93/56
[2018-09-27 09:45] VITALS: BP 114/76
[2018-09-27 13:44] VITALS: BP 122/77
--- NOTE | 2018-09-27 13:50 | NUR ---
PT RESTING IN BED. NO SIGNS OF DISTRESS. IV TO RIGHT AC PATENT NO REDNESS OR TENDERNESS. HAS INCISION TO RIGHT TESTICAL. DENIES ANY FURTHER NEED AT THIS TIME. CALL LIGHT IN REACH. BED LOW POSITION. NO FAMILY AT BEDSIDE.
--- NOTE | 2018-09-27 18:45 | NUR ---
I have reviewed this patient and I concur with the Shift Assessment completed by the Licensed Practical Nurse today this shift.
--- NOTE | 2018-09-27 20:00 | NUR ---
ALERT RESTING IN BED REQUESTING ASPRIN FOR ARTHRITIS PAIN, DR LOU HERE TO SEE PT ORDER RECIEVED FOR HYDROCODONE, SEE SHIFT ASSESSMENT, CALL LIGHT IN REACH
[2018-09-27 22:39] VITALS: BP 96/60
[2018-09-28 05:36] VITALS: BP 95/57
--- NOTE | 2018-09-28 08:00 | NUR ---
PT SITTING UP IN BED WITH EYES OPEN. IV LOCATED TO RIGHT AC, SL. BREATHING EVEN AND NONLABORED. DENIES NEEDS AT THIS TIME, WILL CONT TO MONITOR.
[2018-09-28 09:01] VITALS: BP 107/62
[2018-09-28 12:48] VITALS: BP 93/63
[2018-09-28 16:51] VITALS: BP 103/58
--- NOTE | 2018-09-29 14:56 | MORECARE ---
CASE MANAGEMENT DISCHARGE SUMMARY PATIENT: ESTRELLA STEPHEN UNIT: [id number] ADM DATE: 09/11/18 AGE: 63 : 59 SEX: M ROOM/BED: D.2229 AUTHOR: LIZETTEDOC PHYSICIAN: REFERRING PHYSICIAN: RUPAL BAEZ MD DATE OF SERVICE: 09/29/18 Discharge Plan Patient Name: ESTRELLA STEPHEN Facility: [facility]:[place] : 1955 Planned Disposition: Home Anticipated Discharge Date: 09/28/18 Discharge Date: 09/28/2018 Expected LOS: 17 Initial Reviewer: [id number] Initial Review Date: 09/13/2018 Generated: 09/29/18 3:55 pm Comments DCP- Discharge Planning Updated by [email or web address]: Maliha Dudley on 09/22/18 5:[address] Patient Name: ESTRELLA STEPHEN Admission Status: ER Accout number: [id number] Admission Date: 09-11-2018 : 1955 Admission Diagnosis:OTHER INJURY OF UNSPECIFIED BODY REGION, INITIAL ENCOUN Attending: LIZANDRO BAEZ Current LOS: 11 Anticipated DC Date: Planned Disposition: Primary Insurance: [employer] Discharge Planning Comments: CM FAXED CLINICALS TO [facility] MANNING [facility], THEY ARE WORKING ON TRYING TO GET HIM ACCEPTED TO THEIR [facility]. CM TO FOLLOW AND ASSIST. Hot Repairman: Maliha Dudley Appended by Maliha Dudley on 09/22/2018 18:49 CDT: CM FAXED VA CHECKLIST TO [facility] AT [phone]. INFORMATION SAVED IN IMAGES. DCP- Discharge Planning Updated by [id number]: Maliha Dudley on 09/20/18 10:[address] Patient Name: ESTRELLA STEPHEN Admission Status: ER Accout number: [id number] Admission Date: 09-11-2018 : 1955 Admission Diagnosis:OTHER INJURY OF UNSPECIFIED BODY REGION, INITIAL ENCOUN Attending: LIZANDRO BAEZ Current LOS: 9 Anticipated DC Date: Planned Disposition: Primary Insurance: [employer] Discharge Planning Comments: CM CALLED OFFICE COMMUNICATION PROFESSOR MS RUBIO AT PHONE [phone]. I LEFT A MS FOR HER TO CALL ME BACK. PATIENT IS NOW ON PO ANTIBIOTICS AND WOULD ONLY NEED WOUND CARE. PATIENT STAYS WITH FRIENDS, DOESN'T HAVE A PERMANENT ADDRESS. Hot Repairman: Maliha Dudley DCP- Discharge Planning Updated by [id number]: Maliha Dudley on 09/19/18 11:[address] Patient Name: ESTRELLA STEPHEN Admission Status: ER Accout number: [id number] Admission Date: 09-11-2018 : 1955 Admission Diagnosis: Attending: LIZANDRO BAEZ Current LOS: 8 Anticipated DC Date: Planned Disposition: Primary Insurance: [employer] Discharge Planning Comments: CM SPOKE WITH THE [facility] MS RUBIO. THEY WOULD LIKE TO KNOW DURATION OF ANTIOBIOTICS AND WOUND CARE AND THE PLAN IS FOR THEM TO ACCEPT AND TRANSFER TO THE VA. MS. RUBIO IS WORKING ON IT, CM WILL CALL HER WITH DETAILS OF TREATMENT. CM TO FOLLOW. Hot Repairman: Maliha Dudley FLP- Discharge Planning Updated by [id number]: Maliha Dudley on 09/18/18 2:[address] Patient Name: ESTRELLA STEPHEN Admission Status: ER Accout number: [id number] Admission Date: 09-11-2018 : 1955 Admission Diagnosis: Attending: LIZANDRO BAEZ Current LOS: 7 Anticipated DC Date: Planned Disposition: Primary Insurance: [employer] Discharge Planning Comments: KERRI CHRISTIE FROM [facility] CALLED FROM [phone] ABOUT PATIENT NEEDS. I INFORMED HER THAT MS RUBIO SAID SHE WOULD WORK ON PLACEMENT TODAY. PATIENT NEEDS A SNF. MS CHRISTIE IS CHECKING AND WILL CALL ME BACK. Hot Repairman: Maliha Dudley FLP- Discharge Planning Updated by [email or web address]: Maliha Dudley on 09/15/18 4:[address] Patient Name: ESTRELLA STEPHEN Admission Status: ER Accout number: [id number] Admission Date: 09-11-2018 : 1955 Admission Diagnosis: Attending: LIZANDRO BAEZ Current LOS: 4 Anticipated DC Date: Planned Disposition: Primary Insurance: [employer] Discharge Planning Comments: OFFICE COMMUNICATION PROFESSOR MS RUBIO PHONE [phone] IS WORKING ON PLACEMENT. SHE STATES IT WILL BE TUESDAY BEFORE SHE COULD GET PLACEMENT ON HIM AND STATES DR SEWELL WILL OVER SEE PATIENT WHEN DISCHARGED. CM TO FOLLOW AND ASSIST NEEDED. EXPECTING A CALL FROM JOANNE TUESDAY. Hot Repairman: Maliha Dudley DCP- Discharge Planning Updated by [id number]: Maliha Dudley on 09/14/18 3:[address] Patient Name: ESTRELLA STEPHEN Admission Status: ER Accout number: [id number] Admission Date: 09-11-2018 : 1955 Admission Diagnosis: Attending: LIZANDRO BAEZ Current LOS: 3 Anticipated DC Date: Planned Disposition: Primary Insurance: [facility] Discharge Planning Comments: CM SPOKE WITH BRITNI AT THE [facility] AFTER TALKING TO DR. BAEZ ABOUT DC PLANNING. [facility] NOTIFIED THAT PATIENT WILL NEED HOME HEALTH OR SOME WAY TO GET WOUND PACKING DAILY. KAYLA RUBIO [facility] OFFICE COMMUNICATION PROFESSOR TO CONTACT CM TOMORROW ABOUT GETTING PATIENT DISCHARGED/PLACED. JOANNE PHONE NUMBER IS [phone]. CM TO FOLLOW. Hot Repairman: Maliha Dudley DCP- Discharge Planning Updated by [id number]: Maliha Dudley on 09/13/18 10:[address] Patient Name: ESTRELLA STEPHEN Admission Status: ER Accout number: [id number] Admission Date: 09-11-2018 : 1955 Admission Diagnosis: Attending: LIZANDRO BAEZ Current LOS: 2 Anticipated DC Date: Planned Disposition: Primary Insurance: [employer] Discharge Planning Comments: CM MET WITH PATIENT ABOUT DC/PLANNING NEEDS. NEEDS WOUND CARE DAILY. PATIENT IS [facility] AND STATES HERE FROM [place], APPLIED FOR MARTINEZ TODAY. STATES LIVING ARRANGEMENT IS HE HAS JUMPED AROUND TO DIFFERENT FRIENDS, NO PCP BUT IS VA IN [place]. SIGNED ANISA FOR ANY FACILITY. I WILL CONTACT LA TO CHECK ON HIS WOUND CARE DC NEEDS. CM TO FOLLOW AND ASSIST NEEDED. Hot Repairman: Maliha Dudley DCPIA - Discharge Planning Initial Assessment Updated by [email or web address]: Maliha Dudley on 09/13/18 11:54 am * Is the patient Alert and Oriented? Yes * PCP VA IN [place]. NONE HERE * Preadmission Environment Home with Family * ADLs Independent * Equipment Cane * Community resources currently utilized None * Additional services required to return to the preadmission environment? Yes * Can the patient safely return to the preadmission environment? No * Has this patient been hospitalized within the prior 30 days at any hospital? No Coverage Notice Reviewer: [id number] - Maliha Dudley Notice Issued Date-Time: 09/13/2018 11:59 Notice Type: Patient Choice Letter Notice Delivered To: Patient Relationship to Patient: Self Social Media Content Specialist Name: Delivery Method: HAND - Hand Delivered Gracia Days: Prior Verbal Notification: Recipient Understood Notice: Yes Recipient Signature: Yes Med Rec Note Co-signed by Attending: Coverage Notice Comment: WANTS WOUND CARE WITH VA OR ANY THEY RECOMMEND. Last DP export: 09/22/18 5:51 p Patient Name: ESTRELLA STEPHEN Page [id number] at 1458 All edits/amendments must be made on the electronic document DICTATION DATE: 09/29/181454 HYDROLOGICAL TECHNICAL OFFICER: CALEB 09/29/187 RPT#: [id number] DC DATE:09/28/18 STATUS: DIS IN [facility] [address] [place] [address] END OF REPORT
--- NOTE | 2018-10-05 08:20 | MORECARE ---
CASE MANAGEMENT DISCHARGE SUMMARY PATIENT: ESTRELLA STEPHEN UNIT: [id number] ADM DATE: 09/11/18 AGE: 63 : 59 SEX: M ROOM/BED: D.2229 AUTHOR: LIZETTEDOC PHYSICIAN: REFERRING PHYSICIAN: RUPAL BAEZ MD DATE OF SERVICE: 10/05/18 Discharge Plan Patient Name: ESTRELLA STEPHEN Facility: [facility]:[place] : 1955 Planned Disposition: Home Anticipated Discharge Date: 09/28/18 Discharge Date: 09/28/2018 Expected LOS: 17 Initial Reviewer: [id number] Initial Review Date: 09/13/2018 Generated: 10/05/18 9:20 am Comments DCP- Discharge Planning Updated by [email or web address]: Maliha Dudley on 09/22/18 5:[address] Patient Name: ESTRELLA STEPHEN Admission Status: ER Accout number: [id number] Admission Date: 09-11-2018 : 1955 Admission Diagnosis:OTHER INJURY OF UNSPECIFIED BODY REGION, INITIAL ENCOUN Attending: LIZANDRO BAEZ Current LOS: 11 Anticipated DC Date: Planned Disposition: Primary Insurance: [employer] Discharge Planning Comments: CM FAXED CLINICALS TO MS MANNING AT THE [place], THEY ARE WORKING ON TRYING TO GET HIM ACCEPTED TO THEIR [facility]. CM TO FOLLOW AND ASSIST. Sales Manager: Maliha Dudley Appended by Mailha Dudley on 09/22/2018 18:49 CDT: CM FAXED VA CHECKLIST TO [facility] AT [phone]. INFORMATION SAVED IN IMAGES. DCP- Discharge Planning Updated by [id number]: Maliha Dudley on 09/20/18 10:[address] Patient Name: ESTRELLA STEPHEN Admission Status: ER Accout number: [id number] Admission Date: 09-11-2018 : 1955 Admission Diagnosis:OTHER INJURY OF UNSPECIFIED BODY REGION, INITIAL ENCOUN Attending: LIZANDRO BAEZ Current LOS: 9 Anticipated DC Date: Planned Disposition: Primary Insurance: [employer] Discharge Planning Comments: CM CALLED COUPON MANIFEST CLERK MS RUBIO AT PHONE [phone]. I LEFT A MS FOR HER TO CALL ME BACK. PATIENT IS NOW ON PO ANTIBIOTICS AND WOULD ONLY NEED WOUND CARE. PATIENT STAYS WITH FRIENDS, DOESN'T HAVE A PERMANENT ADDRESS. Sales Manager: Maliha Dudley DCP- Discharge Planning Updated by [id number]: Maliha Dudley on 09/19/18 11:[address] Patient Name: ESTRELLA STEPHEN Admission Status: ER Accout number: [id number] Admission Date: 09-11-2018 : 1955 Admission Diagnosis: Attending: LIZANDRO BAEZ Current LOS: 8 Anticipated DC Date: Planned Disposition: Primary Insurance: [employer] Discharge Planning Comments: CM SPOKE WITH THE [facility] MS RUBIO. THEY WOULD LIKE TO KNOW DURATION OF ANTIOBIOTICS AND WOUND CARE AND THE PLAN IS FOR THEM TO ACCEPT AND TRANSFER TO THE VA. MS. RUBIO IS WORKING ON IT, CM WILL CALL HER WITH DETAILS OF TREATMENT. CM TO FOLLOW. Sales Manager: Maliha Dudley HIP- Discharge Planning Updated by [email or web address]: Maliha Dudley on 09/18/18 2:[address] Patient Name: ESTRELLA STEPHEN Admission Status: ER Accout number: [id number] Admission Date: 09-11-2018 : 1955 Admission Diagnosis: Attending: LIZANDRO BAEZ Current LOS: 7 Anticipated DC Date: Planned Disposition: Primary Insurance: [employer] Discharge Planning Comments: KERRI CHRISTIE FROM [facility] CALLED FROM [phone] ABOUT PATIENT NEEDS. I INFORMED HER THAT MS RUBIO SAID SHE WOULD WORK ON PLACEMENT TODAY. PATIENT NEEDS A SNF. MS CHRISTIE IS CHECKING AND WILL CALL ME BACK. Sales Manager: Maliha Dudley HIP- Discharge Planning Updated by [email or web address]: Maliha Dudley on 09/15/18 4:[address] Patient Name: ESTRELLA STEPHEN Admission Status: ER Accout number: [id number] Admission Date: 09-11-2018 : 1955 Admission Diagnosis: Attending: LIZANDRO BAEZ Current LOS: 4 Anticipated DC Date: Planned Disposition: Primary Insurance: [employer] Discharge Planning Comments: COUPON MANIFEST CLERK MS RUBIO PHONE [phone] IS WORKING ON PLACEMENT. SHE STATES IT WILL BE TUESDAY BEFORE SHE COULD GET PLACEMENT ON HIM AND STATES DR SEWELL WILL OVER SEE PATIENT WHEN DISCHARGED. CM TO FOLLOW AND ASSIST NEEDED. EXPECTING A CALL FROM JOANNE TUESDAY. Sales Manager: Maliha Dudley DCP- Discharge Planning Updated by [email or web address]: Maliha Dudley on 09/14/18 3:[address] Patient Name: ESTRELLA STEPHEN Admission Status: ER Accout number: [id number] Admission Date: 09-11-2018 : 1955 Admission Diagnosis: Attending: LIZANDRO BAEZ Current LOS: 3 Anticipated DC Date: Planned Disposition: Primary Insurance: [facility] ADMINISTRATION Discharge Planning Comments: CM SPOKE WITH BRITNI AT THE [place] AFTER TALKING TO DR. BAEZ ABOUT DC PLANNING. [place] NOTIFIED THAT PATIENT WILL NEED HOME HEALTH OR SOME WAY TO GET WOUND PACKING DAILY. KAYLA RUBIO [place] COUPON MANIFEST CLERK TO CONTACT CM TOMORROW ABOUT GETTING PATIENT DISCHARGED/PLACED. JOANNE PHONE NUMBER IS [phone]. CM TO FOLLOW. Sales Manager: Maliha Dudley DCP- Discharge Planning Updated by [id number]: Maliha Dudley on 09/13/18 10:[address] Patient Name: ESTRELLA STEPHEN Admission Status: ER Accout number: [id number] Admission Date: 09-11-2018 : 1955 Admission Diagnosis: Attending: LIZANDRO BAEZ Current LOS: 2 Anticipated DC Date: Planned Disposition: Primary Insurance: [employer] Discharge Planning Comments: CM MET WITH PATIENT ABOUT DC/PLANNING NEEDS. NEEDS WOUND CARE DAILY. PATIENT IS VA AND STATES HERE FROM [place], APPLIED FOR MARTINEZ TODAY. STATES LIVING ARRANGEMENT IS HE HAS JUMPED AROUND TO DIFFERENT FRIENDS, NO PCP BUT IS VA IN [place]. SIGNED ANISA FOR ANY FACILITY. I WILL CONTACT [place] TO CHECK ON HIS WOUND CARE DC NEEDS. CM TO FOLLOW AND ASSIST NEEDED. Sales Manager: Maliha Dudley DCPIA - Discharge Planning Initial Assessment Updated by [email or web address]: Maliha Dudley on 09/13/18 11:54 am * Is the patient Alert and Oriented? Yes * PCP VA IN [place]. NONE HERE * Preadmission Environment Home with Family * ADLs Independent * Equipment Cane * Community resources currently utilized None * Additional services required to return to the preadmission environment? Yes * Can the patient safely return to the preadmission environment? No * Has this patient been hospitalized within the prior 30 days at any hospital? No Coverage Notice Reviewer: [id number] - Maliha Dudley Notice Issued Date-Time: 09/13/2018 11:59 Notice Type: Patient Choice Letter Notice Delivered To: Patient Relationship to Patient: Self Ice Puller Name: Delivery Method: HAND - Hand Delivered Gracia Days: Prior Verbal Notification: Recipient Understood Notice: Yes Recipient Signature: Yes Med Rec Note Co-signed by Attending: Coverage Notice Comment: WANTS WOUND CARE WITH VA OR ANY THEY RECOMMEND. Last DP export: 09/29/18 1:56 p Patient Name: ESTRELLA STEPHEN Page [id number] at 0820 All edits/amendments must be made on the electronic document DICTATION DATE: 10/05/18819 STREAM CONTROL OFFICER: CALEB 10/05/18819 RPT#: [id number] DC DATE:09/28/18 STATUS: DIS IN [facility] [address] [place] [address] END OF REPORT
== END 2018-09-28 18:49 | disposition home or self-care (01) | DRG 907 ==
LOC: D.ER 16:01 → D.MS 19:12
PROVIDERS: Family Medicine; ADMIT Urology; ATTEND Urology
PROC: 0V950ZZ Drainage of Scrotum, Open Approach (ICD-10-PCS; principal; 2018-09-11)
PROC: 0VT90ZZ Resection of Right Testis, Open Approach (ICD-10-PCS; 2018-09-11)
DX: T14.8XXA Other injury of unspecified body region, initial encounter (principal); A41.9 Sepsis, unspecified organism; W23.0XXA Caught, crushed, jammed, or pinched between moving objects, initial encounter; N50.89 Other specified disorders of the male genital organs; N49.2 Inflammatory disorders of scrotum